=== PATIENT | male | born 1955 | race Caucasian/White ===

== ENCOUNTER 2021-09-04 10:01 | Outpatient (CLI) | payer MEDICARE ==
[2021-09-04 11:32] LABS: Anion Gap 16 mmol/L (10-20); BUN (Urea Nitrogen) 14 mg/dL (8.4-25.7); Calc. Creatinine Clearance 0 mL/min (70-130); Calcium 9.3 mg/dL (7.8-10.44); Carbon Dioxide 28 mmol/L (23-31); Chloride 99 mmol/L (98-107); Estimated GFR 97; Glucose 155 mg/dL (80-115); Potassium 3.9 mmol/L (3.5-5.1); Sodium 139 mmol/L (136-145)
[2021-09-04 11:33] LABS: Hemoglobin 14.2 g/dL (13.5-17.5); Mean Corpuscular HGB CONC 32.8 g/dL (32.0-36.0); Mean Corpuscular Hemoglobin 29.5 pg (27.0-33.0); Mean Corpuscular Volume 89.8 fl (81.2-95.1); Mean Platelet Volume 8.9 fl (7.4-10.4); Platelet Count 314 10x3/uL (150-450); RBC Distribution Width 13.2 % (11.5-14.5); Red Blood Cell (RBC) Count 4.82 10x6/uL (4.32-5.72); White Blood Cell (WBC) Count 9.4 10x3/uL (3.5-10.5)
[2021-09-04 11:38] LABS: PTT 25.3 sec (22.0-33.0); Prothrombin Time 11.3 sec (9.5-12.1)
== END 2021-09-04 10:02 | disposition home or self-care (01) ==
LOC: LABBT 10:01
PROVIDERS: ATTEND Urology
DX: Z01.818 Encounter for other preprocedural examination (principal); N21.0 Calculus in bladder
CPT/HCPCS: 80048; 85027; 85610; 85730; 87811; 93005; 93010

== ENCOUNTER 2021-10-09 10:55 | Outpatient (CLI) | payer MEDICARE ==
[2021-10-09 12:38] LABS: Hemoglobin 13.5 g/dL (13.5-17.5); Mean Corpuscular HGB CONC 32.5 g/dL (32.0-36.0); Mean Corpuscular Hemoglobin 29.4 pg (27.0-33.0); Mean Corpuscular Volume 90.6 fl (81.2-95.1); Mean Platelet Volume 9.2 fl (7.4-10.4); Platelet Count 304 10x3/uL (150-450); RBC Distribution Width 13.5 % (11.5-14.5); Red Blood Cell (RBC) Count 4.59 10x6/uL (4.32-5.72); White Blood Cell (WBC) Count 8.6 10x3/uL (3.5-10.5)
[2021-10-09 12:58] LABS: PTT 25.2 sec (22.0-33.0); Prothrombin Time 10.9 sec (9.5-12.1)
[2021-10-09 13:05] LABS: Anion Gap 13 mmol/L (10-20); BUN (Urea Nitrogen) 15 mg/dL (8.4-25.7); Calc. Creatinine Clearance 0 mL/min (70-130); Calcium 9.1 mg/dL (7.8-10.44); Carbon Dioxide 30 mmol/L (23-31); Chloride 103 mmol/L (98-107); Estimated GFR 98; Glucose 121 mg/dL (80-115); Potassium 4.3 mmol/L (3.5-5.1); Sodium 142 mmol/L (136-145)
== END 2021-10-09 10:56 | disposition home or self-care (01) ==
LOC: LABBT 10:55
PROVIDERS: ATTEND Urology
DX: Z01.812 Encounter for preprocedural laboratory examination (principal); N40.1 Benign prostatic hyperplasia with lower urinary tract symptoms; R33.9 Retention of urine, unspecified; N13.8 Other obstructive and reflux uropathy; N21.0 Calculus in bladder; Z20.822 Contact with and (suspected) exposure to COVID-19
CPT/HCPCS: 80048; 85027; 85610; 85730; 87077; 87086; 87186; 87811

== ENCOUNTER 2021-10-12 06:32 | Day surgery (SDC) | payer MEDICARE ==
[2021-10-10 13:03] VITALS: BMI 31.6
[2021-10-12] MEDS ORDERED: cefTRIAXone\\ROCEPHIN 1 GM VIAL ONE (07:37)
[2021-10-12] MEDS ORDERED: CEFAZOLIN 1 GM VIAL ONE (07:38)
[2021-10-12] MEDS ORDERED: Sodium Chloride 0.9% 200 ML ONE (07:38)
[2021-10-12] MEDS ORDERED: B & O ONE (09:25)
[2021-10-12] MEDS ORDERED: Fentanyl 100 MCG/2 ML VIAL ONE ×2 (09:45→11:38)
[2021-10-12] MEDS ORDERED: Phenylephrine 10 MG/ML VIAL ONE (09:49)
[2021-10-12] MEDS ORDERED: ePHEDrine 50 MG/ML VIAL ONE (09:49)
[2021-10-12] MEDS ORDERED: PROPOFOL 200 MG/20 ML VIAL ONE (09:49)
== END 2021-10-12 13:15 | disposition home or self-care (01) ==
LOC: SDC 06:32
PROVIDERS: ATTEND Urology
PROC: 0T7D8DZ Dilation of Urethra with Intraluminal Device, Via Natural or Artificial Opening Endoscopic (ICD-10-PCS; principal; 2021-10-12)
PROC: 0TCB8ZZ Extirpation of Matter from Bladder, Via Natural or Artificial Opening Endoscopic (ICD-10-PCS; 2021-10-12)
DX: N40.1 Benign prostatic hyperplasia with lower urinary tract symptoms (principal); N21.0 Calculus in bladder; N13.8 Other obstructive and reflux uropathy; R33.8 Other retention of urine; E78.5 Hyperlipidemia, unspecified; I12.9 Hypertensive chronic kidney disease with stage 1 through stage 4 chronic kidney disease, or unspecified chronic kidney disease; E11.22 Type 2 diabetes mellitus with diabetic chronic kidney disease; N18.9 Chronic kidney disease, unspecified; Z86.73 Personal history of transient ischemic attack (TIA), and cerebral infarction without residual deficits; Z79.02 Long term (current) use of antithrombotics/antiplatelets; Z79.82 Long term (current) use of aspirin; Z79.899 Other long term (current) drug therapy
CPT/HCPCS: 52318; 82365; C9740; L8699; 88300; J0690; J0696; J2370; J2704; J3010; J3490

== ENCOUNTER 2021-11-15 22:30 | Inpatient (IN) | payer MEDICARE ==
[2021-11-16] MEDS ORDERED: Ondansetron ODT 4 MG TAB SL PRN (01:15)
[2021-11-16] MEDS ORDERED: Acetaminophen 325 MG TAB PO PRN (01:15)
[2021-11-16] MEDS ORDERED: Ondansetron PF 4 MG/2 ML Vial IVP PRN (01:15)
[2021-11-16] MEDS ORDERED: Acetaminophen 650 MG Suppository PR PRN (01:57)
[2021-11-16] MEDS ORDERED: Dextrose 5% in Water 1,000 ML IV PRN (03:56)
[2021-11-16] MEDS ORDERED: HumaLOG 300 UNITS/3 ML VIAL SC PRN ×2 (03:56)
[2021-11-16] MEDS ORDERED: Dextrose 50% Abboject 50 ML SYRINGE SLOW IVP PRN (03:56)
[2021-11-16 04:21] LABS: SARS-CoV-2 NAA Rapid Test Not Detected (NotDetected)
[2021-11-16 04:48] VITALS: BMI 30.4
[2021-11-16 05:36] LABS: #Eosinphils 0.4 thou/uL (0.0-0.7); #Monocytes 0.7 thou/uL (0.11-0.59); %Basophils 0.5 % (0.0-1.0); %Eosinophils 3.7 % (0.0-10.0); %Lymphocytes 19.7 % (21.0-51.0); %Monocytes 7.2 % (0.0-10.0); %Neutrophils 68.9 % (42.0-75.0); Hemoglobin 13.1 g/dL (14.0-18.0); Mean Corpuscular HGB CONC 33.2 g/dL (32.0-36.0); Mean Corpuscular Hemoglobin 30.9 pg (27.0-31.0); Mean Corpuscular Volume 93.2 fL (78.0-98.0); Mean Platelet Volume 6.8 fL (7.4-10.4); Platelet Count 243 thou/uL (130-400); RBC Distribution Width 12.6 % (11.5-14.5); Red Blood Cell (RBC) Count 4.25 mill/uL (4.70-6.10); White Blood Cell (WBC) Count 10.2 thou/uL (4.8-10.8)
[2021-11-16 06:02] LABS: Anion Gap 13 mmol/L (10-20); BUN (Urea Nitrogen) 12 mg/dL (8.4-25.7); Calc. Creatinine Clearance 132 mL/min (70-130); Calcium 8.6 mg/dL (7.8-10.44); Carbon Dioxide 26 mmol/L (23-31); Chloride 104 mmol/L (98-107); Estimated GFR 98; Glucose 121 mg/dL (80-115); Potassium 4.5 mmol/L (3.5-5.1); Sodium 138 mmol/L (136-145)
[2021-11-16] MEDS ORDERED: Polyethylene Glycol 3350 17 GM Packet PO PRN (12:53)
[2021-11-16] MEDS: traMADol HCl 50 MG TAB PO PRN ×2 (16:21→23:28)
[2021-11-16] MEDS: Carvedilol 25 MG TAB PO SCH (20:24)
[2021-11-16] MEDS: Tamsulosin HCl 0.4 MG CAP PO SCH (20:24)
[2021-11-16] MEDS: Famotidine 20 MG TAB PO SCH (20:24)
[2021-11-16] MEDS: Oxybutynin 5 MG TAB PO SCH (20:24)
[2021-11-16] MEDS ORDERED: Non-Formulary Item 1 EACH (Famotidine [Famotidine] 10 MG Tablet) PO SCH (21:00)
[2021-11-17] MEDS: traMADol HCl 50 MG TAB PO PRN (06:24)
[2021-11-17] MEDS: Amlodipine 5 MG TAB PO SCH (09:20)
[2021-11-17] MEDS: Tamsulosin HCl 0.4 MG CAP PO SCH ×2 (09:20→19:58)
[2021-11-17] MEDS: Calcium Carbonate 500 MG ChewTAB PO SCH (09:20)
[2021-11-17] MEDS: Allopurinol 300 MG TAB PO SCH (09:20)
[2021-11-17] MEDS: Atorvastatin Calcium 40 MG TAB PO SCH (09:20)
[2021-11-17] MEDS: Famotidine 20 MG TAB PO SCH ×2 (09:20→19:58)
[2021-11-17] MEDS: Potassium Chloride 20 MEQ TAB PO SCH (09:20)
[2021-11-17] MEDS: Carvedilol 25 MG TAB PO SCH ×2 (09:20→19:58)
[2021-11-17] MEDS: Oxybutynin 5 MG TAB PO SCH ×3 (09:21→19:58)
[2021-11-17] MEDS: Loratadine 10 MG TAB PO SCH (09:21)
[2021-11-17 11:08] LABS: #Eosinphils 0.4 thou/uL (0.0-0.7); #Lymphocytes 1.6 thou/uL (1.20-3.40); #Monocytes 0.5 thou/uL (0.11-0.59); #Neutrophils 6.6 thou/uL (1.40-6.50); %Basophils 0.4 % (0.0-1.0); %Eosinophils 4.8 % (0.0-10.0); %Lymphocytes 17.6 % (21.0-51.0); %Monocytes 5.6 % (0.0-10.0); %Neutrophils 71.6 % (42.0-75.0); Hemoglobin 13.5 g/dL (14.0-18.0); Mean Corpuscular HGB CONC 32.8 g/dL (32.0-36.0); Mean Corpuscular Hemoglobin 30.6 pg (27.0-31.0); Mean Corpuscular Volume 93.4 fL (78.0-98.0); Mean Platelet Volume 6.7 fL (7.4-10.4); Platelet Count 248 thou/uL (130-400); RBC Distribution Width 12.6 % (11.5-14.5); Red Blood Cell (RBC) Count 4.41 mill/uL (4.70-6.10); White Blood Cell (WBC) Count 9.3 thou/uL (4.8-10.8)
[2021-11-17 11:16] LABS: Anion Gap 12 mmol/L (10-20); BUN (Urea Nitrogen) 16 mg/dL (8.4-25.7); Calc. Creatinine Clearance 136 mL/min (70-130); Calcium 8.8 mg/dL (7.8-10.44); Carbon Dioxide 29 mmol/L (23-31); Chloride 100 mmol/L (98-107); Estimated GFR 98; Glucose 137 mg/dL (80-115); Potassium 4.4 mmol/L (3.5-5.1); Sodium 137 mmol/L (136-145)
[2021-11-18 06:13] LABS: #Eosinphils 0.5 thou/uL (0.0-0.7); #Lymphocytes 1.4 thou/uL (1.20-3.40); #Monocytes 0.6 thou/uL (0.11-0.59); #Neutrophils 5.5 thou/uL (1.40-6.50); %Basophils 0.6 % (0.0-1.0); %Eosinophils 6.3 % (0.0-10.0); %Monocytes 7.6 % (0.0-10.0); %Neutrophils 68.5 % (42.0-75.0); Hemoglobin 13.1 g/dL (14.0-18.0); Mean Corpuscular Hemoglobin 30.5 pg (27.0-31.0); Mean Corpuscular Volume 92.4 fL (78.0-98.0); Mean Platelet Volume 6.8 fL (7.4-10.4); Platelet Count 238 thou/uL (130-400); RBC Distribution Width 12.5 % (11.5-14.5); Red Blood Cell (RBC) Count 4.28 mill/uL (4.70-6.10)
[2021-11-18 06:32] LABS: Anion Gap 13 mmol/L (10-20); BUN (Urea Nitrogen) 16 mg/dL (8.4-25.7); Calc. Creatinine Clearance 138 mL/min (70-130); Calcium 8.9 mg/dL (7.8-10.44); Carbon Dioxide 29 mmol/L (23-31); Chloride 99 mmol/L (98-107); Estimated GFR 99; Glucose 115 mg/dL (80-115); Potassium 3.9 mmol/L (3.5-5.1); Sodium 137 mmol/L (136-145)
[2021-11-18] MEDS: Amlodipine 5 MG TAB PO SCH (10:39)
[2021-11-18] MEDS: Calcium Carbonate 500 MG ChewTAB PO SCH (10:39)
[2021-11-18] MEDS: Famotidine 20 MG TAB PO SCH ×2 (10:39→20:35)
[2021-11-18] MEDS: Loratadine 10 MG TAB PO SCH (10:40)
[2021-11-18] MEDS: Oxybutynin 5 MG TAB PO SCH ×3 (10:40→20:34)
[2021-11-18] MEDS: Carvedilol 25 MG TAB PO SCH ×2 (10:40→20:34)
[2021-11-18] MEDS: Potassium Chloride 20 MEQ TAB PO SCH (10:40)
[2021-11-18] MEDS: Tamsulosin HCl 0.4 MG CAP PO SCH ×2 (10:40→20:35)
[2021-11-18] MEDS: Atorvastatin Calcium 40 MG TAB PO SCH (10:40)
[2021-11-18] MEDS: Allopurinol 300 MG TAB PO SCH (10:41)
[2021-11-18] MEDS: traMADol HCl 50 MG TAB PO PRN (13:03)
[2021-11-19 05:59] LABS: #Eosinphils 0.4 thou/uL (0.0-0.7); #Lymphocytes 1.4 thou/uL (1.20-3.40); #Monocytes 0.5 thou/uL (0.11-0.59); #Neutrophils 5.9 thou/uL (1.40-6.50); %Basophils 0.5 % (0.0-1.0); %Lymphocytes 17.2 % (21.0-51.0); %Neutrophils 71.3 % (42.0-75.0); Hemoglobin 13.4 g/dL (14.0-18.0); Mean Corpuscular HGB CONC 32.2 g/dL (32.0-36.0); Mean Corpuscular Hemoglobin 29.6 pg (27.0-31.0); Mean Corpuscular Volume 91.8 fL (78.0-98.0); Mean Platelet Volume 6.6 fL (7.4-10.4); Platelet Count 261 thou/uL (130-400); RBC Distribution Width 12.4 % (11.5-14.5); Red Blood Cell (RBC) Count 4.54 mill/uL (4.70-6.10); White Blood Cell (WBC) Count 8.3 thou/uL (4.8-10.8)
[2021-11-19 06:16] LABS: Anion Gap 14 mmol/L (10-20); BUN (Urea Nitrogen) 12 mg/dL (8.4-25.7); Calc. Creatinine Clearance 136 mL/min (70-130); Calcium 9.1 mg/dL (7.8-10.44); Carbon Dioxide 28 mmol/L (23-31); Chloride 99 mmol/L (98-107); Estimated GFR 98; Glucose 124 mg/dL (80-115); Potassium 3.8 mmol/L (3.5-5.1); Sodium 137 mmol/L (136-145)
[2021-11-19] MEDS: Allopurinol 300 MG TAB PO SCH (08:58)
[2021-11-19] MEDS: Atorvastatin Calcium 40 MG TAB PO SCH (08:58)
[2021-11-19] MEDS: Loratadine 10 MG TAB PO SCH (08:58)
[2021-11-19] MEDS: Amlodipine 5 MG TAB PO SCH (08:58)
[2021-11-19] MEDS: Carvedilol 25 MG TAB PO SCH ×2 (08:58→20:41)
[2021-11-19] MEDS: Calcium Carbonate 500 MG ChewTAB PO SCH (08:58)
[2021-11-19] MEDS: Potassium Chloride 20 MEQ TAB PO SCH (08:59)
[2021-11-19] MEDS: Tamsulosin HCl 0.4 MG CAP PO SCH ×2 (08:59→20:41)
[2021-11-19] MEDS: Famotidine 20 MG TAB PO SCH ×2 (08:59→20:41)
[2021-11-19] MEDS: Oxybutynin 5 MG TAB PO SCH ×3 (08:59→20:42)
[2021-11-19] MEDS: Melatonin 3 MG TAB PO PRN (21:43)
[2021-11-20 06:22] LABS: #Eosinphils 0.3 thou/uL (0.0-0.7); #Lymphocytes 1.3 thou/uL (1.20-3.40); #Monocytes 0.7 thou/uL (0.11-0.59); #Neutrophils 6.9 thou/uL (1.40-6.50); %Basophils 0.5 % (0.0-1.0); %Eosinophils 3.2 % (0.0-10.0); %Lymphocytes 13.7 % (21.0-51.0); %Monocytes 7.5 % (0.0-10.0); %Neutrophils 75.1 % (42.0-75.0); Hemoglobin 13.4 g/dL (14.0-18.0); Mean Corpuscular HGB CONC 31.9 g/dL (32.0-36.0); Mean Corpuscular Hemoglobin 29.1 pg (27.0-31.0); Mean Corpuscular Volume 91.4 fL (78.0-98.0); Mean Platelet Volume 6.7 fL (7.4-10.4); Platelet Count 281 thou/uL (130-400); RBC Distribution Width 12.5 % (11.5-14.5); White Blood Cell (WBC) Count 9.3 thou/uL (4.8-10.8)
[2021-11-20 06:40] LABS: Anion Gap 14 mmol/L (10-20); BUN (Urea Nitrogen) 12 mg/dL (8.4-25.7); Calc. Creatinine Clearance 138 mL/min (70-130); Calcium 9.2 mg/dL (7.8-10.44); Carbon Dioxide 25 mmol/L (23-31); Chloride 99 mmol/L (98-107); Estimated GFR 99; Glucose 132 mg/dL (80-115); Potassium 3.8 mmol/L (3.5-5.1); Sodium 134 mmol/L (136-145)
[2021-11-20 08:01] LABS: Prothrombin Time 13.5 sec (12.0-14.7)
[2021-11-20 08:02] LABS: PTT 28.6 sec (22.9-36.1)
[2021-11-20] MEDS: Oxybutynin 5 MG TAB PO SCH ×3 (08:37→21:07)
[2021-11-20] MEDS: Carvedilol 25 MG TAB PO SCH ×2 (08:37→21:07)
[2021-11-20] MEDS: Potassium Chloride 20 MEQ TAB PO SCH (08:37)
[2021-11-20] MEDS: Atorvastatin Calcium 40 MG TAB PO SCH (08:37)
[2021-11-20] MEDS: Loratadine 10 MG TAB PO SCH (08:37)
[2021-11-20] MEDS: Calcium Carbonate 500 MG ChewTAB PO SCH (08:37)
[2021-11-20] MEDS: Famotidine 20 MG TAB PO SCH ×2 (08:37→21:07)
[2021-11-20] MEDS: Tamsulosin HCl 0.4 MG CAP PO SCH ×2 (08:37→21:07)
[2021-11-20] MEDS: Amlodipine 5 MG TAB PO SCH (08:38)
[2021-11-20] MEDS: Allopurinol 300 MG TAB PO SCH (08:38)
[2021-11-20] MEDS ORDERED: Midazolam HCl 2 mg/2 ml Vial ONE (11:41)
[2021-11-20] MEDS ORDERED: Fentanyl 100 MCG/2 ML VIAL ONE (11:41)
[2021-11-20] MEDS ORDERED: Lidocaine 2% PF 5 ML VIAL ONE (11:42)
[2021-11-20] MEDS ORDERED: Sodium Bicarbonate 2.5 MEQ/5 ML VIAL ONE (11:42)
[2021-11-20] MEDS ORDERED: cefTRIAXone\\ROCEPHIN 1 GM in Sodium Chloride 0.9% 100 ML IVPB SCH (13:00)
[2021-11-20] MEDS: Melatonin 3 MG TAB PO PRN (21:08)
[2021-11-21 07:20] VITALS: TEMP 98.6
[2021-11-21] MEDS: Amlodipine 5 MG TAB PO SCH (09:23)
[2021-11-21] MEDS: Loratadine 10 MG TAB PO SCH (09:23)
[2021-11-21] MEDS: Allopurinol 300 MG TAB PO SCH (09:23)
[2021-11-21] MEDS: Calcium Carbonate 500 MG ChewTAB PO SCH (09:23)
[2021-11-21] MEDS: Atorvastatin Calcium 40 MG TAB PO SCH (09:23)
[2021-11-21] MEDS: Potassium Chloride 20 MEQ TAB PO SCH (09:23)
[2021-11-21] MEDS: Tamsulosin HCl 0.4 MG CAP PO SCH (09:23)
[2021-11-21] MEDS: Oxybutynin 5 MG TAB PO SCH (09:23)
[2021-11-21] MEDS: Famotidine 20 MG TAB PO SCH (09:23)
[2021-11-21] MEDS: Carvedilol 25 MG TAB PO SCH (09:23)
[2021-11-21 11:58] VITALS: BP 126/78
== END 2021-11-21 13:45 | disposition home or self-care (01) | DRG 698 ==
LOC: SURG B 22:30 → OBSVTOIN 11-16 16:44
PROVIDERS: ADMIT Internal Medicine; ATTEND Internal Medicine
PROC: 0T9B70Z Drainage of Bladder with Drainage Device, Via Natural or Artificial Opening (ICD-10-PCS; principal; 2021-11-20)
DX: T83.83XA Hemorrhage due to genitourinary prosthetic devices, implants and grafts, initial encounter (principal); G93.41 Metabolic encephalopathy; I69.354 Hemiplegia and hemiparesis following cerebral infarction affecting left non-dominant side; E87.1 Hypo-osmolality and hyponatremia; N13.8 Other obstructive and reflux uropathy; T83.098A Other mechanical complication of other urinary catheter, initial encounter; R31.0 Gross hematuria; N40.1 Benign prostatic hyperplasia with lower urinary tract symptoms; Z20.822 Contact with and (suspected) exposure to COVID-19; M10.9 Gout, unspecified; I10 Essential (primary) hypertension; E78.5 Hyperlipidemia, unspecified; I25.10 Atherosclerotic heart disease of native coronary artery without angina pectoris; G20 Parkinson's disease; Z79.82 Long term (current) use of aspirin; Z79.899 Other long term (current) drug therapy; Z98.890 Other specified postprocedural states; Y84.6 Urinary catheterization as the cause of abnormal reaction of the patient, or of later complication, without mention of misadventure at the time of the procedure; T83.091A Other mechanical complication of indwelling urethral catheter, initial encounter; R31.9 Hematuria, unspecified
CPT/HCPCS: 36415; 36416; 51102; 51702; 51798; 70450; 71045; 77002; 80048; 80053; 81003; 81015; 83605; 85025; 85610; 85730; 87040; 87077; 87086; 87186; 96365; 96375; C2627; G0378; J0696; J1815; J2001; J2250; J2270; J2405; J3010; U0002

== ENCOUNTER 2022-12-15 20:31 | Inpatient (IN) | payer MEDICARE ==
[2022-12-15] MEDS ORDERED: Ventilator Sedation Protocol 1 EACH FS ONE (22:45)
[2022-12-15] MEDS ORDERED: Ipratropium/Albuterol 3 ML NEB NEB PRN (22:51)
[2022-12-15] MEDS ORDERED: Glucagon 1 MG/ML KIT IM PRN (22:54)
[2022-12-15] MEDS ORDERED: HumaLOG 300 UNITS/3 ML VIAL SC PRN ×2 (22:54)
[2022-12-15] MEDS ORDERED: Dextrose 5% in Water 1,000 ML IV PRN (22:54)
[2022-12-15] MEDS ORDERED: Dextrose 50% Abboject 50 ML SYRINGE SLOW IVP PRN (22:54)
[2022-12-15] MEDS ORDERED: Electrolyte Replacement Protocol 1 EACH FS PRN (22:55)
[2022-12-15] MEDS ORDERED: Ondansetron ODT 4 MG TAB PO PRN (22:56)
[2022-12-15] MEDS ORDERED: Acetaminophen 650 MG Suppository PR PRN (22:56)
[2022-12-15] MEDS ORDERED: Acetaminophen 325 MG TAB PO PRN (22:56)
[2022-12-15] MEDS ORDERED: Ondansetron PF 4 MG/2 ML Vial IVP PRN (22:56)
[2022-12-15] MEDS ORDERED: Fentanyl CADD 100 ML IV SCH (23:00)
[2022-12-15] MEDS ORDERED: Morphine 2 MG/ML VIAL SLOW IVP PRN (23:00)
[2022-12-15] MEDS ORDERED: Polyethylene Glycol 3350 17 GM Packet PO SCH (23:00)
[2022-12-15] MEDS ORDERED: Mineral Oil ENEMA PR SCH (23:00)
[2022-12-15] MEDS ORDERED: Propofol BOLUS 1,000 MG/100 ML VIAL IV PRN (23:00)
[2022-12-15] MEDS ORDERED: Fentanyl BOLUS 250 ML IVPB PRN (23:00)
[2022-12-15] MEDS ORDERED: DISCONTINUE PREVIOUS NARCOTIC PAIN MEDICATIONS AND BENZODIAZEPINES FS SCH (23:00)
[2022-12-15 23:09] LABS: Actual Bicarbonate (HCO3a) 34.4 mEq/L (22-28); Base Excess (BEa) 9.7 mEq/L (-2.0 to +3.0); CO2 Tension 46.6 mmHg (35.0-45.0); Calcium, Ionized (arterial) 1.06 mmol/L (1.12-1.30); Carboxyhemoglobin (COHb) 0.9 gm% (0.0-3.0); Hematocrit-ABG 39 % (42.0-52.0); Hemoglobin (Hb) 13.1 g/dL (14.0-18.0); pH, Arterial 7.486 (7.35-7.45)
[2022-12-15 23:09] LABS: #Monocytes 1.1 thou/uL (0.11-0.59); %Basophils 0.4 % (0.0-1.0); %Eosinophils 0.4 % (0.0-10.0); %Lymphocytes 15.8 % (21.0-51.0); %Monocytes 10.1 % (0.0-10.0); %Neutrophils 72.8 % (42.0-75.0); Hematocrit 38.7 % (42.0-52.0); Hemoglobin 12.6 g/dL (14.0-18.0); Mean Corpuscular HGB CONC 32.6 g/dL (32.0-36.0); Mean Corpuscular Hemoglobin 28.3 pg (27.0-31.0); Mean Corpuscular Volume 86.8 fl (78.0-98.0); Mean Platelet Volume 8.5 fL (7.4-10.4); Platelet Count 243 10x3/uL (130-400); RBC Distribution Width 13.6 % (11.5-14.5); Red Blood Cell (RBC) Count 4.46 mill/uL (4.70-6.10)
[2022-12-15 23:11] LABS: O2 Tension (PaO2), arterial 58.9 mmHg (> 80.0)
[2022-12-15 23:12] LABS: Puncture Site RFA
[2022-12-15 23:29] LABS: Lactic Acid 2.2 mmol/L (0.5-2.2)
[2022-12-15] MEDS: Ipratropium/Albuterol 3 ML NEB NEB SCH (23:29)
[2022-12-15] MEDS ORDERED: Piperacillin/Tazobactam 3.375 GM in Sodium Chloride 0.9% 100 ML IVPB SCH (23:30)
[2022-12-15 23:33] LABS: ALT (SGPT) 15 U/L (8-55); AST (SGOT) 14 U/L (5-34); Albumin 4.3 g/dL (3.4-4.8); Alkaline Phosphatase 173 U/L (40-110); Anion Gap 15 mmol/L (10-20); BUN (Urea Nitrogen) 18 mg/dL (8.4-25.7); Bilirubin, Total 0.5 mg/dL (0.2-1.2); Calc. Creatinine Clearance 0 mL/min (70-130); Calcium 8.9 mg/dL (7.8-10.44); Carbon Dioxide 33 mmol/L (23-31); Chloride 82 mmol/L (98-107); Estimated GFR 95; Globulin 2.6 g/dL (2.4-3.5); Glucose 76 mg/dL (80-115); Protein, Total 6.9 g/dL (5.8-8.1); Sodium 126 mmol/L (136-145)
[2022-12-15] MEDS: Propofol 1,000 MG/100 ML VIAL IV PRN (23:58)
[2022-12-15] MEDS: Sodium Chloride 0.9% 1,000 ML IV SCH (23:58)
[2022-12-15] MEDS ORDERED: Vancomycin (BATCH) 2 GM in Premix 1 BAG IVPB SCH (23:59)
[2022-12-16 00:35] LABS: Bacteria/HPF 4+ HPF (None Seen); Bilirubin Negative (Negative); Blood, Urine Trace (Negative); CAUTI Indications for Culture Alt mental st,lethar; Clarity Clear (Clear); Glucose, Urine (Dipstick) Normal (Negative); Ketone, Urine Negative (Negative); Leukocyte 500 Leu/uL (Negative); Nitrite Negative (Negative); Protein, Urine (Dipstick) 70 mg/dL (Neg-Trace); RBC/HPF 21-50 HPF (0-3); Squamous Epithelial None Seen HPF (0-3); Urobilinogen Normal mg/dL (Less than 2); WBC/HPF Greater than 50 HPF (0-3); pH, Urine 8.5 (5.0-9.0)
[2022-12-16 00:45] LABS: Specific Gravity, Urine 1.046 (1.002-1.036)
[2022-12-16 02:47] LABS: Strep pneumo Urine Ag NEGATIVE (NEGATIVE)
[2022-12-16 02:48] LABS: Legionella Urinary Ag Negative (Negative)
[2022-12-16] MEDS: Piperacillin/Tazobactam 3.375 GM in Sodium Chloride 0.9% 100 ML IVPB SCH ×3 (03:10→20:18)
[2022-12-16] MEDS: Lorazepam 2 MG/ML VIAL SLOW IVP PRN ×2 (03:10→20:17)
[2022-12-16] MEDS: Propofol 1,000 MG/100 ML VIAL IV PRN ×4 (03:10→20:17)
[2022-12-16 04:14] LABS: #Eosinphils 0.1 thou/uL (0.0-0.7); #Monocytes 0.7 thou/uL (0.11-0.59); #Neutrophils 7.2 thou/uL (1.40-6.50); %Basophils 0.4 % (0.0-1.0); %Eosinophils 1.5 % (0.0-10.0); %Lymphocytes 14.1 % (21.0-51.0); %Monocytes 7.7 % (0.0-10.0); %Neutrophils 75.9 % (42.0-75.0); Hematocrit 35.6 % (42.0-52.0); Mean Corpuscular HGB CONC 33.7 g/dL (32.0-36.0); Mean Corpuscular Hemoglobin 28.4 pg (27.0-31.0); Mean Corpuscular Volume 84.4 fl (78.0-98.0); Mean Platelet Volume 8.3 fL (7.4-10.4); Platelet Count 198 10x3/uL (130-400); RBC Distribution Width 13.8 % (11.5-14.5); Red Blood Cell (RBC) Count 4.22 mill/uL (4.70-6.10); White Blood Cell (WBC) Count 9.5 10x3/uL (4.8-10.8)
[2022-12-16 04:38] LABS: Anion Gap 12 mmol/L (10-20); BUN (Urea Nitrogen) 16 mg/dL (8.4-25.7); Calc. Creatinine Clearance 156 mL/min (70-130); Calcium 8.6 mg/dL (7.8-10.44); Carbon Dioxide 34 mmol/L (23-31); Chloride 87 mmol/L (98-107); Estimated GFR 99; Potassium 2.9 mmol/L (3.5-5.1); Sodium 130 mmol/L (136-145)
[2022-12-16 04:44] LABS: Glucose 48 mg/dL (80-115)
[2022-12-16] MEDS: Ipratropium/Albuterol 3 ML NEB NEB SCH ×4 (07:11→23:37)
[2022-12-16] MEDS ORDERED: VANC IVPB PRN (07:28)
[2022-12-16] MEDS ORDERED: Dexmedetomidine 400 MCG, Admixture Fee 1 EACH in Sodium Chloride 0.9% 96 ML IVPB SCH (08:00)
[2022-12-16] MEDS: Potassium Chloride 20 MEQ in Premix 1 BAG IVPB SCH ×4 (08:12→14:22)
[2022-12-16] MEDS: levETIRAcetam 500 MG/5 ML VIAL SLOW IVP SCH ×2 (08:12→20:19)
[2022-12-16] MEDS: Polyethylene Glycol 3350 17 GM Packet PO SCH (08:13)
[2022-12-16] MEDS: Senokot S 8.6-50 MG TAB PO SCH ×2 (08:13→20:19)
[2022-12-16] MEDS ORDERED: Vancomycin 1 GM in Sodium Chloride 0.9% 250 ML 250 ML IVPB SCH (09:00)
[2022-12-16] MEDS ORDERED: Pantoprazole 40 MG VIAL IVP SCH (09:00)
[2022-12-16 09:18] LABS: Actual Bicarbonate (HCO3a) 31.9 mEq/L (22-28); CO2 Tension 46.4 mmHg (35.0-45.0); Calcium, Ionized (arterial) 1.08 mmol/L (1.12-1.30); Carboxyhemoglobin (COHb) 0.7 gm% (0.0-3.0); Hematocrit-ABG 38 % (42.0-52.0); Hemoglobin (Hb) 12.9 g/dL (14.0-18.0); Potassium - ABG Lab 3.44 mmol/L (3.70-5.30); Puncture Site RRA; pH, Arterial 7.455 (7.35-7.45)
[2022-12-16] MEDS ORDERED: Iopamidol-370 76% 500 ML MDV (1 ML CHARGE) ONE (09:53)
[2022-12-16] MEDS ORDERED: Dexamethasone 10 MG/ML VIAL SLOW IVP SCH (11:00)
[2022-12-16] MEDS ORDERED: Cyproheptadine 4 MG TAB PO SCH (12:00)
[2022-12-16] MEDS ORDERED: Famotidine/PF 20 mg/2ml Vial SLOW IVP SCH (13:00)
[2022-12-16] MEDS: Cyproheptadine 4 MG TAB PO SCH ×5 (14:22→22:25)
[2022-12-16] MEDS: hydrALAZINE 20 MG/ML VIAL SLOW IVP PRN ×2 (15:08→20:39)
[2022-12-16] MEDS ORDERED: diphenhydrAMINE 50 MG/ML VIAL IVP PRN (16:58)
[2022-12-16 17:53] LABS: Anion Gap 13 mmol/L (10-20); BUN (Urea Nitrogen) 13 mg/dL (8.4-25.7); Calc. Creatinine Clearance 135 mL/min (70-130); Calcium 9.1 mg/dL (7.8-10.44); Carbon Dioxide 33 mmol/L (23-31); Chloride 91 mmol/L (98-107); Estimated GFR 95; Glucose 153 mg/dL (80-115); Potassium 4.2 mmol/L (3.5-5.1); Sodium 133 mmol/L (136-145)
[2022-12-16] MEDS: Famotidine/PF 20 mg/2ml Vial SLOW IVP SCH (20:19)
[2022-12-16] MEDS: Sodium Chloride 0.9% 1,000 ML IV SCH (20:22)
[2022-12-17] MEDS: Cyproheptadine 4 MG TAB PO SCH ×5 (00:46→09:23)
[2022-12-17 02:25] LABS: #Monocytes 0.3 thou/uL (0.11-0.59); #Neutrophils 9.9 thou/uL (1.40-6.50); %Basophils 0.1 % (0.0-1.0); %Lymphocytes 4.8 % (21.0-51.0); %Monocytes 2.8 % (0.0-10.0); %Neutrophils 91.8 % (42.0-75.0); Hematocrit 39.1 % (42.0-52.0); Hemoglobin 13.2 g/dL (14.0-18.0); Mean Corpuscular HGB CONC 33.8 g/dL (32.0-36.0); Mean Corpuscular Hemoglobin 28.1 pg (27.0-31.0); Mean Corpuscular Volume 83.4 fl (78.0-98.0); Mean Platelet Volume 8.5 fL (7.4-10.4); Platelet Count 236 10x3/uL (130-400); RBC Distribution Width 14.1 % (11.5-14.5); Red Blood Cell (RBC) Count 4.69 mill/uL (4.70-6.10); White Blood Cell (WBC) Count 10.7 10x3/uL (4.8-10.8)
[2022-12-17 02:54] LABS: Anion Gap 15 mmol/L (10-20); BUN (Urea Nitrogen) 16 mg/dL (8.4-25.7); Calc. Creatinine Clearance 133 mL/min (70-130); Calcium 8.9 mg/dL (7.8-10.44); Carbon Dioxide 29 mmol/L (23-31); Chloride 92 mmol/L (98-107); Estimated GFR 95; Glucose 174 mg/dL (80-115); Potassium 3.6 mmol/L (3.5-5.1); Sodium 132 mmol/L (136-145)
[2022-12-17] MEDS: Propofol 1,000 MG/100 ML VIAL IV PRN (04:53)
[2022-12-17] MEDS: Piperacillin/Tazobactam 3.375 GM in Sodium Chloride 0.9% 100 ML IVPB SCH ×3 (04:53→20:27)
[2022-12-17] MEDS: Ipratropium/Albuterol 3 ML NEB NEB SCH ×2 (06:06→12:32)
[2022-12-17 07:40] LABS: Actual Bicarbonate (HCO3a) 28.3 mEq/L (22-28); Base Excess (BEa) 4.1 mEq/L (-2.0 to +3.0); CO2 Tension 40.7 mmHg (35.0-45.0); Calcium, Ionized (arterial) 1.09 mmol/L (1.12-1.30); Carboxyhemoglobin (COHb) 0.6 gm% (0.0-3.0); Hematocrit-ABG 41 % (42.0-52.0); O2 Tension (PaO2), arterial 61.8 mmHg (> 80.0); Potassium - ABG Lab 3.68 mmol/L (3.70-5.30)
[2022-12-17 07:42] LABS: ALV-art Gradient 172.525 mmHg (0-20); Puncture Site RRA
[2022-12-17] MEDS: levETIRAcetam 500 MG/5 ML VIAL SLOW IVP SCH ×2 (09:21→20:27)
[2022-12-17] MEDS: Senokot S 8.6-50 MG TAB PO SCH ×2 (09:22→20:28)
[2022-12-17] MEDS: Famotidine/PF 20 mg/2ml Vial SLOW IVP SCH ×2 (09:22→20:27)
[2022-12-17] MEDS: Polyethylene Glycol 3350 17 GM Packet PO SCH (09:23)
[2022-12-17] MEDS ORDERED: Ipratropium/Albuterol 3 ML NEB NEB PRN (12:45)
[2022-12-17] MEDS ORDERED: DC Sedation Protocol FS ONE (13:05)
[2022-12-17] MEDS: Sodium Chloride 0.9% 1,000 ML IV SCH (16:38)
[2022-12-17] MEDS ORDERED: Sodium Chloride 0.9% 1,000 ML IV SCH (20:21)
[2022-12-17] MEDS ORDERED: Sodium Chloride 0.9% 500 ML IV SCH (20:30)
[2022-12-17 23:08] LABS: #Eosinphils 0.1 thou/uL (0.0-0.7); #Monocytes 0.9 thou/uL (0.11-0.59); #Neutrophils 8.2 thou/uL (1.40-6.50); %Basophils 0.4 % (0.0-1.0); %Eosinophils 0.9 % (0.0-10.0); %Lymphocytes 12.7 % (21.0-51.0); %Monocytes 8.2 % (0.0-10.0); %Neutrophils 77.5 % (42.0-75.0); Hematocrit 38.5 % (42.0-52.0); Hemoglobin 12.5 g/dL (14.0-18.0); Mean Corpuscular HGB CONC 32.5 g/dL (32.0-36.0); Mean Corpuscular Hemoglobin 28.3 pg (27.0-31.0); Mean Platelet Volume 8.7 fL (7.4-10.4); Platelet Count 242 10x3/uL (130-400); RBC Distribution Width 14.7 % (11.5-14.5); Red Blood Cell (RBC) Count 4.41 mill/uL (4.70-6.10); White Blood Cell (WBC) Count 10.6 10x3/uL (4.8-10.8)
[2022-12-17 23:57] LABS: Mean Corpuscular Volume 87.3 fl (78.0-98.0)
[2022-12-18] MEDS: Piperacillin/Tazobactam 3.375 GM in Sodium Chloride 0.9% 100 ML IVPB SCH ×3 (03:00→20:43)
[2022-12-18 03:59] LABS: #Eosinphils 0.2 thou/uL (0.0-0.7); #Monocytes 0.8 thou/uL (0.11-0.59); #Neutrophils 7.9 thou/uL (1.40-6.50); %Basophils 0.4 % (0.0-1.0); %Eosinophils 1.5 % (0.0-10.0); %Lymphocytes 13.2 % (21.0-51.0); %Monocytes 7.7 % (0.0-10.0); %Neutrophils 76.8 % (42.0-75.0); Hematocrit 37.2 % (42.0-52.0); Mean Corpuscular HGB CONC 32.3 g/dL (32.0-36.0); Mean Corpuscular Hemoglobin 27.8 pg (27.0-31.0); Mean Corpuscular Volume 86.3 fl (78.0-98.0); Mean Platelet Volume 8.9 fL (7.4-10.4); Platelet Count 241 10x3/uL (130-400); RBC Distribution Width 14.6 % (11.5-14.5); Red Blood Cell (RBC) Count 4.31 mill/uL (4.70-6.10); White Blood Cell (WBC) Count 10.2 10x3/uL (4.8-10.8)
[2022-12-18 04:20] LABS: Anion Gap 13 mmol/L (10-20); BUN (Urea Nitrogen) 18 mg/dL (8.4-25.7); CK (CPK) 3793 U/L (30-200); Calc. Creatinine Clearance 131 mL/min (70-130); Calcium 8.3 mg/dL (7.8-10.44); Carbon Dioxide 29 mmol/L (23-31); Chloride 100 mmol/L (98-107); Estimated GFR 95; Glucose 87 mg/dL (80-115); Potassium 3.3 mmol/L (3.5-5.1); Sodium 139 mmol/L (136-145)
[2022-12-18] MEDS: Sodium Chloride 0.9% 1,000 ML IV SCH ×2 (04:39→11:30)
[2022-12-18] MEDS ORDERED: Sodium Chloride 0.9% 500 ML IV SCH (04:45)
[2022-12-18] MEDS: Senokot S 8.6-50 MG TAB PO SCH ×3 (08:48→20:44)
[2022-12-18] MEDS: Polyethylene Glycol 3350 17 GM Packet PO SCH (08:58)
[2022-12-18] MEDS: Famotidine/PF 20 mg/2ml Vial SLOW IVP SCH (08:58)
[2022-12-18] MEDS: levETIRAcetam 500 MG/5 ML VIAL SLOW IVP SCH ×2 (08:58→20:43)
[2022-12-18] MEDS: Potassium Chloride 20 MEQ in Premix 1 BAG IVPB SCH ×2 (09:00→10:23)
[2022-12-18] MEDS ORDERED: Sodium Chloride 0.9% 1,000 ML IV SCH (14:30)
[2022-12-18] MEDS: Dextrose 5 % And 0.9 % NaCl 1,000 ML IV SCH (23:10)
[2022-12-19] MEDS: Piperacillin/Tazobactam 3.375 GM in Sodium Chloride 0.9% 100 ML IVPB SCH ×3 (03:40→20:56)
[2022-12-19 04:23] LABS: #Basophils 0.1 thou/uL (0.0-0.2); #Eosinphils 0.4 thou/uL (0.0-0.7); #Monocytes 0.7 thou/uL (0.11-0.59); #Neutrophils 6.6 thou/uL (1.40-6.50); %Basophils 0.7 % (0.0-1.0); %Lymphocytes 15.1 % (21.0-51.0); %Monocytes 7.3 % (0.0-10.0); %Neutrophils 72.6 % (42.0-75.0); Hematocrit 38.4 % (42.0-52.0); Mean Corpuscular HGB CONC 31.3 g/dL (32.0-36.0); Mean Corpuscular Hemoglobin 28.5 pg (27.0-31.0); Mean Corpuscular Volume 91.2 fl (78.0-98.0); Mean Platelet Volume 8.8 fL (7.4-10.4); Platelet Count 233 10x3/uL (130-400); RBC Distribution Width 14.9 % (11.5-14.5); Red Blood Cell (RBC) Count 4.21 mill/uL (4.70-6.10)
[2022-12-19 04:49] LABS: Anion Gap 13 mmol/L (10-20); BUN (Urea Nitrogen) 16 mg/dL (8.4-25.7); CK (CPK) 2254 U/L (30-200); Calc. Creatinine Clearance 142 mL/min (70-130); Calcium 8.6 mg/dL (7.8-10.44); Carbon Dioxide 29 mmol/L (23-31); Chloride 100 mmol/L (98-107); Estimated GFR 98; Glucose 86 mg/dL (80-115); Potassium 3.7 mmol/L (3.5-5.1); Sodium 138 mmol/L (136-145)
[2022-12-19] MEDS ORDERED: FLU VACC QS2023(65UP)/MF59C/PF 60 MCG/0.5 ML SYRINGE IM ONE (09:00)
[2022-12-19] MEDS: Dextrose 5 % And 0.9 % NaCl 1,000 ML IV SCH ×2 (10:37→20:56)
[2022-12-19] MEDS: levETIRAcetam 500 MG/5 ML VIAL SLOW IVP SCH ×2 (10:38→20:56)
[2022-12-19] MEDS: Senokot S 8.6-50 MG TAB PO SCH ×2 (12:13→20:57)
[2022-12-19] MEDS: Polyethylene Glycol 3350 17 GM Packet PO SCH (12:13)
[2022-12-20] MEDS: Dextrose 5 % And 0.9 % NaCl 1,000 ML IV SCH ×2 (04:18→15:20)
[2022-12-20] MEDS: Piperacillin/Tazobactam 3.375 GM in Sodium Chloride 0.9% 100 ML IVPB SCH ×3 (04:18→20:14)
[2022-12-20 04:58] LABS: Anion Gap 14 mmol/L (10-20); BUN (Urea Nitrogen) 11 mg/dL (8.4-25.7); CK (CPK) 1216 U/L (30-200); Calc. Creatinine Clearance 147 mL/min (70-130); Calcium 8.8 mg/dL (7.8-10.44); Carbon Dioxide 29 mmol/L (23-31); Chloride 100 mmol/L (98-107); Estimated GFR 98; Glucose 79 mg/dL (80-115); Sodium 139 mmol/L (136-145)
[2022-12-20] MEDS: levETIRAcetam 500 MG/5 ML VIAL SLOW IVP SCH ×2 (08:16→20:14)
[2022-12-20] MEDS: Polyethylene Glycol 3350 17 GM Packet PO SCH (08:17)
[2022-12-20] MEDS: Senokot S 8.6-50 MG TAB PO SCH ×2 (08:17→20:14)
[2022-12-21] MEDS: Dextrose 5 % And 0.9 % NaCl 1,000 ML IV SCH ×2 (04:23→10:59)
[2022-12-21] MEDS: Piperacillin/Tazobactam 3.375 GM in Sodium Chloride 0.9% 100 ML IVPB SCH ×3 (04:24→20:18)
[2022-12-21 04:54] LABS: Anion Gap 12 mmol/L (10-20); BUN (Urea Nitrogen) 11 mg/dL (8.4-25.7); Calc. Creatinine Clearance 147 mL/min (70-130); Carbon Dioxide 33 mmol/L (23-31); Chloride 100 mmol/L (98-107); Estimated GFR 98; Potassium 3.4 mmol/L (3.5-5.1); Sodium 142 mmol/L (136-145)
[2022-12-21 04:55] LABS: Calcium 8.7 mg/dL (7.8-10.44); Glucose 72 mg/dL (80-115)
[2022-12-21] MEDS ORDERED: Potassium Chloride 20 MEQ TAB PO SCH (08:00)
[2022-12-21] MEDS: Senokot S 8.6-50 MG TAB PO SCH ×2 (08:27→20:18)
[2022-12-21] MEDS: levETIRAcetam 500 MG/5 ML VIAL SLOW IVP SCH (08:28)
[2022-12-21] MEDS: Polyethylene Glycol 3350 17 GM Packet PO SCH (08:28)
[2022-12-21 14:01] LABS: Potassium 4.5 mmol/L (3.5-5.1)
[2022-12-22] MEDS: Piperacillin/Tazobactam 3.375 GM in Sodium Chloride 0.9% 100 ML IVPB SCH ×3 (04:02→20:08)
[2022-12-22 05:11] LABS: Anion Gap 13 mmol/L (10-20); BUN (Urea Nitrogen) 12 mg/dL (8.4-25.7); Calc. Creatinine Clearance 153 mL/min (70-130); Calcium 8.3 mg/dL (7.8-10.44); Carbon Dioxide 32 mmol/L (23-31); Chloride 101 mmol/L (98-107); Estimated GFR 99; Glucose 85 mg/dL (80-115); Potassium 3.4 mmol/L (3.5-5.1); Sodium 143 mmol/L (136-145)
[2022-12-22] MEDS ORDERED: Potassium Chloride 20 MEQ TAB PO SCH (08:00)
[2022-12-22] MEDS: Polyethylene Glycol 3350 17 GM Packet PO SCH (08:39)
[2022-12-22] MEDS: Senokot S 8.6-50 MG TAB PO SCH ×3 (08:39→20:20)
[2022-12-23] MEDS: Piperacillin/Tazobactam 3.375 GM in Sodium Chloride 0.9% 100 ML IVPB SCH ×3 (04:15→20:35)
[2022-12-23 05:01] LABS: Anion Gap 13 mmol/L (10-20); BUN (Urea Nitrogen) 18 mg/dL (8.4-25.7); Calc. Creatinine Clearance 153 mL/min (70-130); Calcium 8.5 mg/dL (7.8-10.44); Carbon Dioxide 34 mmol/L (23-31); Chloride 99 mmol/L (98-107); Estimated GFR 99; Glucose 90 mg/dL (80-115); Potassium 3.3 mmol/L (3.5-5.1); Sodium 143 mmol/L (136-145)
[2022-12-23] MEDS ORDERED: Potassium Chloride 20 MEQ TAB PO SCH ×2 (08:00→11:00)
[2022-12-23] MEDS: Senokot S 8.6-50 MG TAB PO SCH ×2 (10:20→20:37)
[2022-12-23] MEDS: Polyethylene Glycol 3350 17 GM Packet PO SCH (10:20)
[2022-12-23 15:28] VITALS: BMI 33.3
[2022-12-23] MEDS: Carvedilol 6.25 MG TAB PO SCH (18:18)
[2022-12-23] MEDS: Atorvastatin Calcium 40 MG TAB PO SCH (20:36)
[2022-12-23] MEDS: Tamsulosin HCl 0.4 MG CAP PO SCH (20:37)
[2022-12-23] MEDS: Nystatin Powder 15 GM BOT TOP SCH (22:02)
[2022-12-24 04:53] LABS: Anion Gap 11 mmol/L (10-20); BUN (Urea Nitrogen) 18 mg/dL (8.4-25.7); Calc. Creatinine Clearance 151 mL/min (70-130); Calcium 8.9 mg/dL (7.8-10.44); Carbon Dioxide 35 mmol/L (23-31); Chloride 97 mmol/L (98-107); Estimated GFR 98; Glucose 86 mg/dL (80-115); Magnesium 1.8 mg/dL (1.6-2.6); Potassium 3.5 mmol/L (3.5-5.1); Sodium 139 mmol/L (136-145)
[2022-12-24] MEDS ORDERED: Potassium Chloride 20 MEQ TAB PO SCH (08:00)
[2022-12-24] MEDS ORDERED: Magnesium 2 GM/50 ML(in water) 2 GM in Premix 1 BAG IVPB SCH (08:00)
[2022-12-24] MEDS: Polyethylene Glycol 3350 17 GM Packet PO SCH (09:28)
[2022-12-24] MEDS: Aspirin 81 mg Enteric Coated Tablet PO SCH (09:28)
[2022-12-24] MEDS: Senokot S 8.6-50 MG TAB PO SCH (09:29)
[2022-12-24] MEDS: Potassium Chloride 20 MEQ TAB PO SCH (09:29)
[2022-12-24] MEDS: Amoxicillin/Potassium Clav 875 MG TAB PO SCH ×2 (09:29→21:41)
[2022-12-24] MEDS: Lisinopril 10 MG TAB PO SCH (09:29)
[2022-12-24] MEDS: Carvedilol 6.25 MG TAB PO SCH ×2 (09:29→18:56)
[2022-12-24] MEDS: Tamsulosin HCl 0.4 MG CAP PO SCH ×2 (09:29→21:41)
[2022-12-24] MEDS: Nystatin Powder 15 GM BOT TOP SCH ×2 (09:30→21:57)
[2022-12-24] MEDS: Allopurinol 300 MG TAB PO SCH (09:30)
[2022-12-24] MEDS ORDERED: Polyethylene Glycol 3350 17 GM Packet PO PRN (17:36)
[2022-12-24] MEDS ORDERED: Senokot S 8.6-50 MG TAB PO PRN (18:39)
[2022-12-24] MEDS: Atorvastatin Calcium 40 MG TAB PO SCH (21:41)
[2022-12-24 23:58] VITALS: TEMP 98.1
[2022-12-25 04:10] LABS: #Basophils 0.1 thou/uL (0.0-0.2); #Eosinphils 0.4 thou/uL (0.0-0.7); #Monocytes 0.6 thou/uL (0.11-0.59); #Neutrophils 5.1 thou/uL (1.40-6.50); %Basophils 0.7 % (0.0-1.0); %Eosinophils 5.2 % (0.0-10.0); %Lymphocytes 17.5 % (21.0-51.0); %Monocytes 7.8 % (0.0-10.0); %Neutrophils 68.4 % (42.0-75.0); Hematocrit 38.2 % (42.0-52.0); Hemoglobin 11.6 g/dL (14.0-18.0); Mean Corpuscular HGB CONC 30.4 g/dL (32.0-36.0); Mean Corpuscular Volume 92.3 fl (78.0-98.0); Mean Platelet Volume 8.8 fL (7.4-10.4); Platelet Count 234 10x3/uL (130-400); RBC Distribution Width 14.7 % (11.5-14.5); Red Blood Cell (RBC) Count 4.14 mill/uL (4.70-6.10); White Blood Cell (WBC) Count 7.5 10x3/uL (4.8-10.8)
[2022-12-25 04:30] LABS: Anion Gap 12 mmol/L (10-20); BUN (Urea Nitrogen) 21 mg/dL (8.4-25.7); Calc. Creatinine Clearance 155 mL/min (70-130); Calcium 8.5 mg/dL (7.8-10.44); Carbon Dioxide 37 mmol/L (23-31); Chloride 97 mmol/L (98-107); Estimated GFR 99; Glucose 95 mg/dL (80-115); Potassium 3.6 mmol/L (3.5-5.1); Sodium 142 mmol/L (136-145)
[2022-12-25] MEDS: Potassium Chloride 20 MEQ TAB PO SCH (09:04)
[2022-12-25] MEDS: Lisinopril 10 MG TAB PO SCH (09:04)
[2022-12-25] MEDS: Amoxicillin/Potassium Clav 875 MG TAB PO SCH (09:04)
[2022-12-25] MEDS: Carvedilol 6.25 MG TAB PO SCH ×2 (09:04→16:39)
[2022-12-25] MEDS: Aspirin 81 mg Enteric Coated Tablet PO SCH (09:04)
[2022-12-25] MEDS: Allopurinol 300 MG TAB PO SCH (09:04)
[2022-12-25] MEDS: Nystatin Powder 15 GM BOT TOP SCH (09:05)
[2022-12-25] MEDS: Tamsulosin HCl 0.4 MG CAP PO SCH (09:05)
[2022-12-25 15:48] VITALS: BP 179/99
== END 2022-12-25 18:10 | DRG 208 ==
LOC: CCU 22:29 → IMCU/EMU 12-19 00:25 → 2NO 12-19 19:49
PROVIDERS: ADMIT Student in an Organized Health Care Education/Training Program; ATTEND Family Medicine
PROC: 3E03329 Introduction of Other Anti-infective into Peripheral Vein, Percutaneous Approach (ICD-10-PCS; principal; 2022-12-15)
PROC: 4A133R1 Monitoring of Arterial Saturation, Peripheral, Percutaneous Approach (ICD-10-PCS; 2022-12-15)
PROC: 5A1945Z Respiratory Ventilation, 24-96 Consecutive Hours (ICD-10-PCS; 2022-12-15)
PROC: 4A00X4Z Measurement of Central Nervous Electrical Activity, External Approach (ICD-10-PCS; 2022-12-16)
PROC: 5A09357 Assistance with Respiratory Ventilation, Less than 24 Consecutive Hours, Continuous Positive Airway Pressure (ICD-10-PCS; 2022-12-25)
DX: J96.21 Acute and chronic respiratory failure with hypoxia (principal); G93.41 Metabolic encephalopathy; J18.9 Pneumonia, unspecified organism; E87.29 Other acidosis; E87.1 Hypo-osmolality and hyponatremia; N39.0 Urinary tract infection, site not specified; M62.82 Rhabdomyolysis; J96.22 Acute and chronic respiratory failure with hypercapnia; Z51.5 Encounter for palliative care; R56.9 Unspecified convulsions; K52.89 Other specified noninfective gastroenteritis and colitis; Z88.8 Allergy status to other drugs, medicaments and biological substances; Z79.899 Other long term (current) drug therapy; Z79.82 Long term (current) use of aspirin; N40.0 Benign prostatic hyperplasia without lower urinary tract symptoms; E78.5 Hyperlipidemia, unspecified; Z98.890 Other specified postprocedural states; M10.9 Gout, unspecified; T78.3XXA Angioneurotic edema, initial encounter; I25.10 Atherosclerotic heart disease of native coronary artery without angina pectoris; G20.A1 Parkinson's disease without dyskinesia, without mention of fluctuations; G47.33 Obstructive sleep apnea (adult) (pediatric); Z79.4 Long term (current) use of insulin; E87.6 Hypokalemia; Z99.81 Dependence on supplemental oxygen; I10 Essential (primary) hypertension; Z86.73 Personal history of transient ischemic attack (TIA), and cerebral infarction without residual deficits; E11.9 Type 2 diabetes mellitus without complications
CPT/HCPCS: 31500; 36415; 36416; 36600; 43762; 70360; 70450; 70492; 71045; 71275; 74177; 80048; 80053; 80306; 80307; 81001; 82550; 82805; 83605; 83735; 83880; 83930; 83935; 84145; 84300; 84443; 84484; 85025; 85610; 85730; 87040; 87081; 87086; 87449; 87899; 90471; 90694; 93005; 93010; 94002; 94003; 94640; 94660; 94760; 95711; 95819; 95957; 96374; 96375; 99292; C9113; G0008; J0360; J1100; J1200; J1650; J1953; J2060; J2543; J2704; J3010; J3370; J3475; J3480; J3490; J7030; J7042; J7050; J7620; Q9967; S0028

== ENCOUNTER 2023-08-24 12:14 | Outpatient (CLI) | payer MEDICARE | END 2023-08-24 12:15 | disposition home or self-care (01) | LOC: CT 12:14 | PROVIDERS: ATTEND Nurse Practitioner Family | DX: K59.01 Slow transit constipation (principal); K63.89 Other specified diseases of intestine | CPT/HCPCS: 74176 ==

== ENCOUNTER → 2024-01-01 | Day surgery (SDC) | payer MEDICARE ==
[~2024-01-01] MED LIST: Ketamine In 0.9 % NaCl 50 MG/5 ML SYRINGE ONE; Lidocaine 1% PF 5 ML VIAL ONE; Midazolam HCl 2 mg/2 ml Vial ONE; PHENYLEPHRINE-NS 100 MCG/ML 10 ML SYRINGE ONE; PROPOFOL 200 MG/20 ML VIAL ONE
== END ==
LOC: SDC 06:47
PROVIDERS: ATTEND Internal Medicine Gastroenterology
PROC: 0DBE8ZX Excision of Large Intestine, Via Natural or Artificial Opening Endoscopic, Diagnostic (ICD-10-PCS; principal; 2024-01-01)
DX: K63.89 Other specified diseases of intestine (principal); K21.9 Gastro-esophageal reflux disease without esophagitis; M10.9 Gout, unspecified; I12.9 Hypertensive chronic kidney disease with stage 1 through stage 4 chronic kidney disease, or unspecified chronic kidney disease; E11.22 Type 2 diabetes mellitus with diabetic chronic kidney disease; N18.9 Chronic kidney disease, unspecified; N40.0 Benign prostatic hyperplasia without lower urinary tract symptoms; E78.5 Hyperlipidemia, unspecified; Z86.73 Personal history of transient ischemic attack (TIA), and cerebral infarction without residual deficits; Z98.41 Cataract extraction status, right eye; Z98.42 Cataract extraction status, left eye; Z96.642 Presence of left artificial hip joint; Z88.8 Allergy status to other drugs, medicaments and biological substances; Z79.84 Long term (current) use of oral hypoglycemic drugs; Z79.02 Long term (current) use of antithrombotics/antiplatelets; Z79.82 Long term (current) use of aspirin; Z79.899 Other long term (current) drug therapy
CPT/HCPCS: 45380; J2250; J2704; J3490; 88305

== ENCOUNTER 2024-01-22 07:29 | Outpatient (CLI) | payer MEDICARE | END 2024-01-22 07:30 | disposition home or self-care (01) | LOC: CT 07:29 → EDSTATUS 08:00 | PROVIDERS: ATTEND Internal Medicine Gastroenterology | DX: R19.7 Diarrhea, unspecified (principal); R14.0 Abdominal distension (gaseous); Z98.890 Other specified postprocedural states | CPT/HCPCS: 36415; 74177; 82565 ==

== ENCOUNTER 2024-03-04 10:40 | Inpatient (IN) | payer MEDICARE ==
[2024-03-04] MEDS ORDERED: metroNIDAZOLE 500 MG TAB ONE (11:29)
[2024-03-04 11:38] LABS: #Basophils 0.06 10x3/uL (0.0-0.2); %Basophils 0.4 % (0.0-1.0); %Eosinophils 0.8 % (0.0-10.0); %Lymphocytes 3.9 % (21.0-51.0); %Monocytes 3.3 % (0.0-10.0); %Neutrophils 91.2 % (42.0-75.0); Hematocrit 45.9 % (42.0-52.0); Hemoglobin 14.5 g/dL (14.0-18.0); Mean Corpuscular HGB CONC 31.6 g/dL (32.0-36.0); Mean Corpuscular Hemoglobin 27.6 pg (27.0-31.0); Mean Corpuscular Volume 87.3 fL (78.0-98.0); Mean Platelet Volume 8.7 fL (7.4-10.4); Platelet Count 267 10x3/uL (130-400); RBC Distribution Width 14.4 % (11.5-14.5); Red Blood Cell (RBC) Count 5.26 mill/uL (4.70-6.10)
[2024-03-04 11:58] LABS: ALT (SGPT) 17 U/L (8-55); AST (SGOT) 18 U/L (5-34); Albumin 3.2 g/dL (3.4-4.8); Alkaline Phosphatase 112 U/L (40-110); Anion Gap 13 mmol/L (10-20); BUN (Urea Nitrogen) 24 mg/dL (8.4-25.7); Bilirubin, Total 0.5 mg/dL (0.2-1.2); Calc. Creatinine Clearance 0 mL/min (70-130); Calcium 9.1 mg/dL (7.8-10.44); Carbon Dioxide 21 mmol/L (23-31); Chloride 105 mmol/L (98-107); Estimated GFR 97; Globulin 4.1 g/dL (2.4-3.5); Glucose 59 mg/dL (80-115); Potassium 4.1 mmol/L (3.5-5.1); Protein, Total 7.3 g/dL (5.8-8.1); Sodium 135 mmol/L (136-145)
[2024-03-04 14:38] LABS: Lactic Acid 0.79 mmol/L (0.5-2.2)
[2024-03-04] MEDS: Vancomycin HCl 125 MG Capsule PO SCH ×3 (16:32→20:49)
[2024-03-04] MEDS ORDERED: Vancomycin HCl 125 MG Capsule PO SCH (18:00)
[2024-03-04] MEDS ORDERED: metroNIDAZOLE 500 MG TAB PO SCH (21:00)
[2024-03-04] MEDS: Lactated Ringer's 1,000 ML IV SCH (23:18)
[2024-03-04] MEDS: metroNIDAZOLE 500 MG in Premix 1 BAG IVPB SCH (23:18)
[2024-03-05 05:40] LABS: #Basophils 0.05 10x3/uL (0.0-0.2); %Basophils 0.4 % (0.0-1.0); %Eosinophils 2.4 % (0.0-10.0); %Monocytes 6.2 % (0.0-10.0); %Neutrophils 82.4 % (42.0-75.0); Hematocrit 37.7 % (42.0-52.0); Hemoglobin 12.1 g/dL (14.0-18.0); Mean Corpuscular HGB CONC 32.1 g/dL (32.0-36.0); Mean Corpuscular Hemoglobin 27.8 pg (27.0-31.0); Mean Corpuscular Volume 86.5 fL (78.0-98.0); Mean Platelet Volume 8.8 fL (7.4-10.4); Platelet Count 217 10x3/uL (130-400); RBC Distribution Width 14.4 % (11.5-14.5); Red Blood Cell (RBC) Count 4.36 mill/uL (4.70-6.10)
[2024-03-05 05:54] LABS: Anion Gap 10 mmol/L (10-20); BUN (Urea Nitrogen) 20 mg/dL (8.4-25.7); Calc. Creatinine Clearance 138 mL/min (70-130); Calcium 8.3 mg/dL (7.8-10.44); Carbon Dioxide 23 mmol/L (23-31); Chloride 106 mmol/L (98-107); Estimated GFR 100; Glucose 70 mg/dL (80-115); Potassium 3.6 mmol/L (3.5-5.1); Sodium 135 mmol/L (136-145)
[2024-03-05] MEDS ORDERED: Dextrose 50% Abboject 50 ML SYRINGE SLOW IVP PRN (07:29)
[2024-03-05] MEDS ORDERED: Dextrose 5% in Water 1,000 ML IV PRN (07:29)
[2024-03-05] MEDS ORDERED: Insulin Lispro 100 UNIT/ML 10 ML VIAL SC PRN (07:29)
[2024-03-05] MEDS ORDERED: Glucagon 1 MG/ML KIT IM PRN (07:29)
[2024-03-05] MEDS: Atorvastatin Calcium 40 MG TAB PO SCH (09:00)
[2024-03-05] MEDS: Aspirin 81 mg Enteric Coated Tablet PO SCH (09:00)
[2024-03-05] MEDS: Cholecalciferol 1,000 UNITS (25 MCG) TAB PO SCH (09:01)
[2024-03-05] MEDS: Pantoprazole 40 MG DR.TAB PO SCH (09:01)
[2024-03-05] MEDS: Calcium Carbonate 500 MG ChewTAB PO SCH (09:01)
[2024-03-05] MEDS: Loratadine 10 MG TAB PO SCH (09:02)
[2024-03-05] MEDS: Clopidogrel Bisulfate 75 MG TAB PO SCH (09:02)
[2024-03-05] MEDS: Allopurinol 300 MG TAB PO SCH (09:02)
[2024-03-05] MEDS: Enoxaparin 40 MG (0.4 mL) SYRINGE SC SCH (09:15)
[2024-03-06 05:33] LABS: #Basophils 0.07 10x3/uL (0.0-0.2); %Basophils 0.7 % (0.0-1.0); %Eosinophils 5.1 % (0.0-10.0); %Lymphocytes 12.4 % (21.0-51.0); %Monocytes 7.5 % (0.0-10.0); %Neutrophils 73.5 % (42.0-75.0); Hematocrit 41.6 % (42.0-52.0); Mean Corpuscular HGB CONC 31.3 g/dL (32.0-36.0); Mean Corpuscular Hemoglobin 27.3 pg (27.0-31.0); Mean Corpuscular Volume 87.4 fL (78.0-98.0); Platelet Count 182 10x3/uL (130-400); RBC Distribution Width 14.4 % (11.5-14.5); Red Blood Cell (RBC) Count 4.76 mill/uL (4.70-6.10)
[2024-03-06 05:40] LABS: Anion Gap 11 mmol/L (10-20); BUN (Urea Nitrogen) 15 mg/dL (8.4-25.7); Calc. Creatinine Clearance 157 mL/min (70-130); Calcium 8.5 mg/dL (7.8-10.44); Carbon Dioxide 24 mmol/L (23-31); Chloride 106 mmol/L (98-107); Estimated GFR 103; Glucose 100 mg/dL (80-115); Potassium 3.7 mmol/L (3.5-5.1); Sodium 137 mmol/L (136-145)
[2024-03-06] MEDS: Insulin Lispro 100 UNIT/ML 10 ML VIAL SC PRN (11:28)
[2024-03-06] MEDS: hydrALAZINE 20 MG/ML VIAL SLOW IVP PRN (16:50)
[2024-03-07 04:50] LABS: #Basophils 0.06 10x3/uL (0.0-0.2); %Basophils 0.5 % (0.0-1.0); %Eosinophils 5.1 % (0.0-10.0); %Lymphocytes 12.3 % (21.0-51.0); %Neutrophils 76.1 % (42.0-75.0); Hematocrit 38.7 % (42.0-52.0); Hemoglobin 12.7 g/dL (14.0-18.0); Mean Corpuscular HGB CONC 32.8 g/dL (32.0-36.0); Mean Corpuscular Hemoglobin 27.9 pg (27.0-31.0); Mean Corpuscular Volume 85.1 fL (78.0-98.0); Mean Platelet Volume 8.9 fL (7.4-10.4); Platelet Count 249 10x3/uL (130-400); RBC Distribution Width 14.2 % (11.5-14.5); Red Blood Cell (RBC) Count 4.55 mill/uL (4.70-6.10)
[2024-03-07 05:08] LABS: Anion Gap 12 mmol/L (10-20); BUN (Urea Nitrogen) 10 mg/dL (8.4-25.7); Calc. Creatinine Clearance 150 mL/min (70-130); Calcium 8.4 mg/dL (7.8-10.44); Carbon Dioxide 28 mmol/L (23-31); Chloride 101 mmol/L (98-107); Estimated GFR 101; Glucose 92 mg/dL (80-115); Potassium 3.3 mmol/L (3.5-5.1); Sodium 138 mmol/L (136-145)
[2024-03-07 05:36] VITALS: BMI 29.7
[2024-03-07] MEDS: Potassium Chloride 20 MEQ in Premix 1 BAG IVPB SCH (06:45)
[2024-03-07] MEDS: Floranex 1 GM Packet PO SCH (13:10)
[2024-03-07] MEDS: Vancomycin HCl 125 MG Capsule PO SCH (13:14)
[2024-03-07] MEDS: Losartan 25 MG TAB PO SCH (13:14)
[2024-03-08 06:28] LABS: #Basophils 0.07 10x3/uL (0.0-0.2); %Basophils 0.6 % (0.0-1.0); %Eosinophils 2.4 % (0.0-10.0); %Lymphocytes 12.2 % (21.0-51.0); %Monocytes 5.5 % (0.0-10.0); %Neutrophils 77.8 % (42.0-75.0); Hematocrit 44.1 % (42.0-52.0); Hemoglobin 14.3 g/dL (14.0-18.0); Mean Corpuscular HGB CONC 32.4 g/dL (32.0-36.0); Mean Corpuscular Hemoglobin 27.1 pg (27.0-31.0); Mean Corpuscular Volume 83.7 fL (78.0-98.0); Mean Platelet Volume 8.7 fL (7.4-10.4); Platelet Count 313 10x3/uL (130-400); RBC Distribution Width 13.9 % (11.5-14.5); Red Blood Cell (RBC) Count 5.27 mill/uL (4.70-6.10)
[2024-03-08 06:44] LABS: Anion Gap 17 mmol/L (10-20); BUN (Urea Nitrogen) 8 mg/dL (8.4-25.7); Calc. Creatinine Clearance 158 mL/min (70-130); Calcium 8.7 mg/dL (7.8-10.44); Carbon Dioxide 27 mmol/L (23-31); Chloride 100 mmol/L (98-107); Estimated GFR 103; Glucose 139 mg/dL (80-115); Potassium 3.2 mmol/L (3.5-5.1); Sodium 141 mmol/L (136-145)
[2024-03-08] MEDS: Losartan 25 MG TAB PO SCH (09:45)
[2024-03-08] MEDS: Floranex 1 GM Packet PO SCH (09:47)
[2024-03-08] MEDS: Potassium Chloride 20 MEQ TAB PO SCH (14:32)
[2024-03-08 16:34] LABS: Actual Bicarbonate (HCO3v) 31.2 mEq/L (22-28); Base Excess 6.2 mEq/L (-2.0 to +3.0); Calcium, Ionized (venous) 1.08 mmol/L (1.16-1.32); Chloride (VBG) 96 mmol/L (98-106); Hematocrit-VBG 43 % (42.0-52.0); Hemoglobin (Hb) 14.5 g/dL (12.6-17.4); Potassium (VBG) 3.67 mmol/L (3.70-5.30); Sodium 137 mmol/L (133-146); pH (venous) 7.451 (7.32-7.43)
[2024-03-09 05:40] LABS: #Basophils 0.09 10x3/uL (0.0-0.2); %Basophils 0.9 % (0.0-1.0); %Eosinophils 5.6 % (0.0-10.0); %Lymphocytes 20.9 % (21.0-51.0); %Monocytes 7.7 % (0.0-10.0); %Neutrophils 62.4 % (42.0-75.0); Hematocrit 42.2 % (42.0-52.0); Hemoglobin 13.4 g/dL (14.0-18.0); Mean Corpuscular HGB CONC 31.8 g/dL (32.0-36.0); Mean Corpuscular Hemoglobin 27.3 pg (27.0-31.0); Mean Corpuscular Volume 86.1 fL (78.0-98.0); Mean Platelet Volume 8.8 fL (7.4-10.4); Platelet Count 281 10x3/uL (130-400); RBC Distribution Width 14.2 % (11.5-14.5)
[2024-03-09 06:00] LABS: Anion Gap 13 mmol/L (10-20); BUN (Urea Nitrogen) 13 mg/dL (8.4-25.7); Calc. Creatinine Clearance 158 mL/min (70-130); Calcium 8.6 mg/dL (7.8-10.44); Carbon Dioxide 28 mmol/L (23-31); Chloride 102 mmol/L (98-107); Estimated GFR 103; Glucose 88 mg/dL (80-115); Potassium 3.4 mmol/L (3.5-5.1); Sodium 140 mmol/L (136-145)
[2024-03-09] MEDS: Potassium Chloride 20 MEQ TAB PO SCH (09:01)
[2024-03-09] MEDS: Lactated Ringer's 1,000 ML IV SCH (11:38)
[2024-03-09] MEDS: QUEtiapine 25 MG TAB PO SCH (21:05)
[2024-03-10 05:13] LABS: #Basophils 0.09 10x3/uL (0.0-0.2); %Basophils 0.9 % (0.0-1.0); %Eosinophils 6.4 % (0.0-10.0); %Lymphocytes 19.5 % (21.0-51.0); %Neutrophils 65.6 % (42.0-75.0); Hemoglobin 12.2 g/dL (14.0-18.0); Mean Corpuscular HGB CONC 32.1 g/dL (32.0-36.0); Mean Corpuscular Hemoglobin 27.9 pg (27.0-31.0); Mean Corpuscular Volume 86.8 fL (78.0-98.0); Mean Platelet Volume 8.5 fL (7.4-10.4); Platelet Count 289 10x3/uL (130-400); RBC Distribution Width 14.3 % (11.5-14.5); Red Blood Cell (RBC) Count 4.38 mill/uL (4.70-6.10)
[2024-03-10 06:30] LABS: Anion Gap 10 mmol/L (10-20); BUN (Urea Nitrogen) 18 mg/dL (8.4-25.7); Calc. Creatinine Clearance 136 mL/min (70-130); Calcium 8.3 mg/dL (7.8-10.44); Carbon Dioxide 30 mmol/L (23-31); Chloride 102 mmol/L (98-107); Estimated GFR 99; Glucose 110 mg/dL (80-115); Potassium 3.3 mmol/L (3.5-5.1); Sodium 139 mmol/L (136-145)
[2024-03-10] MEDS: Potassium Chloride 20 MEQ TAB PO SCH (09:01)
[2024-03-10 16:02] VITALS: BP 152/102; TEMP 98
== END 2024-03-10 19:15 | DRG 372 ==
LOC: ERS 10:40 → SURG B 15:00
PROVIDERS: ADMIT Student in an Organized Health Care Education/Training Program; ATTEND Student in an Organized Health Care Education/Training Program
DX: A04.71 Enterocolitis due to Clostridium difficile, recurrent (principal); I69.354 Hemiplegia and hemiparesis following cerebral infarction affecting left non-dominant side; N39.0 Urinary tract infection, site not specified; J96.11 Chronic respiratory failure with hypoxia; J96.12 Chronic respiratory failure with hypercapnia; E11.9 Type 2 diabetes mellitus without complications; I10 Essential (primary) hypertension; M10.9 Gout, unspecified; E78.5 Hyperlipidemia, unspecified; I25.10 Atherosclerotic heart disease of native coronary artery without angina pectoris; Z88.8 Allergy status to other drugs, medicaments and biological substances; Z79.899 Other long term (current) drug therapy; Z79.82 Long term (current) use of aspirin; Z79.84 Long term (current) use of oral hypoglycemic drugs; N40.0 Benign prostatic hyperplasia without lower urinary tract symptoms; Z79.02 Long term (current) use of antithrombotics/antiplatelets
CPT/HCPCS: 36415; 36416; 71045; 80048; 80053; 82040; 82805; 83605; 85025; 87040; 93005; 93010; 93970; 94660; 96360; J0360; J1650; J1815; J3480; J7120

== ENCOUNTER 2024-10-11 16:28 | Inpatient (IN) | payer MEDICARE ==
[2024-10-11] MEDS ORDERED: cefTRIAXone (ROCEPHIN) 2 GM VIAL ONE (17:27)
[2024-10-11 17:28] LABS: #Basophils 0.06 10x3/uL (0.0-0.2); #Eosinophils 0.05 10x3/uL (0.0-0.7); #Monocytes 1.09 10x3/uL (0.11-0.59); #Neutrophils 12.69 10x3/uL (1.40-6.50); %Basophils 0.4 % (0.0-1.0); %Eosinophils 0.3 % (0.0-10.0); %Lymphocytes 7.2 % (21.0-51.0); %Monocytes 7.2 % (0.0-10.0); %Neutrophils 84.3 % (42.0-75.0); Hematocrit 38.5 % (42.0-52.0); Hemoglobin 12.4 g/dL (14.0-18.0); Mean Corpuscular Hemoglobin 28.2 pg (27.0-31.0); Mean Corpuscular Volume 87.7 fL (78.0-98.0); Platelet Count 212 10x3/uL (130-400); Red Blood Cell (RBC) Count 4.39 mill/uL (4.70-6.10); White Blood Cell (WBC) Count 15.07 10x3/uL (4.8-10.8)
[2024-10-11 17:33] LABS: Actual Bicarbonate (HCO3v) 21.8 mEq/L (22-28); Analyzer IN Cardio ER; Base Excess -2.1 mEq/L (-2.0 to +3.0); Calcium, Ionized (venous) 1.10 mmol/L (1.16-1.32); Chloride (VBG) 107 mmol/L (98-106); Hematocrit-VBG 40 % (42.0-52.0); Hemoglobin (Hb) 13.5 g/dL (12.6-17.4); Potassium (VBG) 3.18 mmol/L (3.70-5.30); Sodium 139 mmol/L (133-146)
[2024-10-11 17:51] LABS: ALT (SGPT) 16 U/L (Less than 45); AST (SGOT) 18 U/L (11-34); Albumin 3.1 g/dL (3.1-4.5); Alkaline Phosphatase 108 U/L (40-110); Anion Gap 12 mmol/L (10-20); BUN (Urea Nitrogen) 29 mg/dL (8.4-25.7); Bilirubin, Total 0.7 mg/dL (0.3-1.2); Calc. Creatinine Clearance 0 mL/min (70-130); Calcium 8.0 mg/dL (7.8-10.44); Carbon Dioxide 22 mmol/L (23-31); Chloride 109 mmol/L (98-107); Globulin 3.2 g/dL (2.4-3.5); Glucose 82 mg/dL (83-110); Potassium 3.1 mmol/L (3.5-5.1); Sodium 140 mmol/L (136-145)
[2024-10-11 17:55] LABS: Troponin I 0.051 ng/mL (< 0.028)
[2024-10-11] MEDS ORDERED: Albuterol 2.5 MG (0.5 mL) NEB ONE ×2 (18:15→18:17)
[2024-10-11] MEDS ORDERED: Potassium Chloride 20 MEQ (100 mL) BAG ONE ×2 (19:59→20:14)
[2024-10-11 20:12] LABS: Troponin I 0.041 ng/mL (< 0.028)
[2024-10-11 20:37] LABS: Bacteria/HPF 4+ HPF (None Seen); CAUTI Indications for Culture Dysuria,urgency,freq; Glucose, Urine (Dipstick) Normal (Negative); Leukocyte 500 Leu/uL (Negative); Protein, Urine (Dipstick) 300 mg/dL (Neg-Trace); RBC/HPF 21-50 HPF (0-3); Specific Gravity, Urine 1.021 (1.002-1.036); WBC/HPF Greater than 50 HPF (0-3)
[2024-10-11 20:39] LABS: Urine Culture Reflex Yes Yes
[2024-10-11] MEDS ORDERED: Ondansetron PF 4 MG/2 ML Vial IVP PRN (22:45)
[2024-10-11] MEDS ORDERED: Acetaminophen 325 MG TAB PO PRN (22:45)
[2024-10-12 04:09] LABS: #Basophils 0.03 10x3/uL (0.0-0.2); #Eosinophils Less than 0.03 10x3/uL (0.0-0.7); #Monocytes 0.09 10x3/uL (0.11-0.59); #Neutrophils 12.92 10x3/uL (1.40-6.50); %Basophils 0.2 % (0.0-1.0); %Eosinophils 0.0 % (0.0-10.0); %Lymphocytes 3.9 % (21.0-51.0); %Monocytes 0.7 % (0.0-10.0); %Neutrophils 94.4 % (42.0-75.0); Hematocrit 39.9 % (42.0-52.0); Hemoglobin 12.4 g/dL (14.0-18.0); Mean Corpuscular Hemoglobin 28.2 pg (27.0-31.0); Mean Corpuscular Volume 90.9 fL (78.0-98.0); Platelet Count 200 10x3/uL (130-400); Red Blood Cell (RBC) Count 4.39 mill/uL (4.70-6.10); White Blood Cell (WBC) Count 13.68 10x3/uL (4.8-10.8)
[2024-10-12 04:37] LABS: ALT (SGPT) 17 U/L (Less than 45); AST (SGOT) 17 U/L (11-34); Albumin 3.0 g/dL (3.1-4.5); Alkaline Phosphatase 112 U/L (40-110); Anion Gap 13 mmol/L (10-20); BUN (Urea Nitrogen) 27 mg/dL (8.4-25.7); Bilirubin, Total 0.4 mg/dL (0.3-1.2); Calc. Creatinine Clearance 123 mL/min (70-130); Calcium 8.0 mg/dL (7.8-10.44); Carbon Dioxide 19 mmol/L (23-31); Chloride 113 mmol/L (98-107); Globulin 3.4 g/dL (2.4-3.5); Glucose 169 mg/dL (83-110); Potassium 3.3 mmol/L (3.5-5.1); Sodium 142 mmol/L (136-145)
[2024-10-12] MEDS: Enoxaparin 40 MG (0.4 mL) SYRINGE SC SCH (09:22)
[2024-10-12] MEDS ORDERED: Dextrose 50% Abboject 50 ML SYRINGE SLOW IVP PRN (13:02)
[2024-10-12] MEDS ORDERED: Glucagon 1 MG/ML KIT IM PRN (13:02)
[2024-10-12] MEDS: cefTRIAXone\\ROCEPHIN 2 GM in Sodium Chloride 0.9% 100 ML IVPB SCH (15:02)
[2024-10-12] MEDS ORDERED: Electrolyte Replacement Protocol 1 EACH FS PRN (19:21)
[2024-10-13 02:12] VITALS: BMI 30.4
[2024-10-13 05:22] LABS: #Basophils 0.03 10x3/uL (0.0-0.2); #Eosinophils 0.05 10x3/uL (0.0-0.7); #Monocytes 0.73 10x3/uL (0.11-0.59); #Neutrophils 8.04 10x3/uL (1.40-6.50); %Basophils 0.3 % (0.0-1.0); %Eosinophils 0.5 % (0.0-10.0); %Lymphocytes 8.3 % (21.0-51.0); %Monocytes 7.5 % (0.0-10.0); %Neutrophils 82.6 % (42.0-75.0); Hematocrit 39.1 % (42.0-52.0); Hemoglobin 12.3 g/dL (14.0-18.0); Mean Corpuscular Hemoglobin 28.0 pg (27.0-31.0); Mean Corpuscular Volume 89.1 fL (78.0-98.0); Platelet Count 209 10x3/uL (130-400); Red Blood Cell (RBC) Count 4.39 mill/uL (4.70-6.10); White Blood Cell (WBC) Count 9.74 10x3/uL (4.8-10.8)
[2024-10-13 05:41] LABS: Anion Gap 12 mmol/L (10-20); BUN (Urea Nitrogen) 24 mg/dL (8.4-25.7); Calc. Creatinine Clearance 147 mL/min (70-130); Calcium 8.2 mg/dL (7.8-10.44); Carbon Dioxide 18 mmol/L (23-31); Chloride 114 mmol/L (98-107); Glucose 124 mg/dL (83-110); Magnesium 1.7 mg/dL (1.6-2.6); Potassium 3.2 mmol/L (3.5-5.1); Sodium 141 mmol/L (136-145)
[2024-10-13] MEDS: Magnesium 2 GM/50 ML(in water) 2 GM in Premix 1 BAG IVPB SCH (09:32)
[2024-10-13] MEDS: Floranex 1 GM Packet PO SCH (09:33)
[2024-10-13] MEDS: Calcium Carbonate 500 MG ChewTAB PO SCH (09:34)
[2024-10-13] MEDS: Aspirin 81 mg Enteric Coated Tablet PO SCH (09:34)
[2024-10-13] MEDS: Allopurinol 300 MG TAB PO SCH (09:34)
[2024-10-13] MEDS: Losartan 25 MG TAB PO SCH (09:35)
[2024-10-13] MEDS: Pantoprazole 40 MG DR.TAB PO SCH (09:35)
[2024-10-13] MEDS: Cholecalciferol 1,000 UNITS (25 MCG) TAB PO SCH (09:35)
[2024-10-13] MEDS: VANCOMYCIN 2 GRAM/400 ML Premix BAG IVPB SCH (20:43)
[2024-10-13] MEDS ORDERED: Vancomycin 1 GM in Premix 1 BAG IVPB SCH (21:00)
[2024-10-13] MEDS: Acetaminophen 500 MG TAB PO SCH (21:02)
[2024-10-13] MEDS: Acetaminophen 325 MG TAB PO PRN (21:10)
[2024-10-14 05:15] LABS: Vancomycin, Random 17.6 ug/mL (See Comment)
[2024-10-14 05:24] LABS: Anion Gap 12 mmol/L (10-20); BUN (Urea Nitrogen) 14 mg/dL (8.4-25.7); Calc. Creatinine Clearance 152 mL/min (70-130); Calcium 8.0 mg/dL (7.8-10.44); Carbon Dioxide 21 mmol/L (23-31); Chloride 110 mmol/L (98-107); Glucose 127 mg/dL (83-110); Magnesium 1.7 mg/dL (1.6-2.6); Potassium 3.7 mmol/L (3.5-5.1); Sodium 139 mmol/L (136-145)
[2024-10-14] MEDS ORDERED: Vancomycin 1.25 GM / NS 250 ML VIAL-2-BAG IVPB SCH (08:00)
[2024-10-14] MEDS: Magnesium 2 GM/50 ML(in water) 2 GM in Premix 1 BAG IVPB SCH (10:45)
[2024-10-14 12:35] VITALS: BMI 30.4
[2024-10-15 05:39] LABS: #Basophils 0.07 10x3/uL (0.0-0.2); #Eosinophils 0.38 10x3/uL (0.0-0.7); #Monocytes 0.87 10x3/uL (0.11-0.59); #Neutrophils 8.18 10x3/uL (1.40-6.50); %Basophils 0.6 % (0.0-1.0); %Eosinophils 3.4 % (0.0-10.0); %Lymphocytes 13.9 % (21.0-51.0); %Monocytes 7.7 % (0.0-10.0); %Neutrophils 72.7 % (42.0-75.0); Hematocrit 40.2 % (42.0-52.0); Hemoglobin 13.1 g/dL (14.0-18.0); Mean Corpuscular Hemoglobin 28.3 pg (27.0-31.0); Mean Corpuscular Volume 86.8 fL (78.0-98.0); Platelet Count 194 10x3/uL (130-400); Red Blood Cell (RBC) Count 4.63 mill/uL (4.70-6.10); White Blood Cell (WBC) Count 11.25 10x3/uL (4.8-10.8)
[2024-10-15 05:51] LABS: Anion Gap 12 mmol/L (10-20); BUN (Urea Nitrogen) 10 mg/dL (8.4-25.7); Calc. Creatinine Clearance 169 mL/min (70-130); Calcium 7.9 mg/dL (7.8-10.44); Carbon Dioxide 23 mmol/L (23-31); Chloride 108 mmol/L (98-107); Glucose 111 mg/dL (83-110); Potassium 3.7 mmol/L (3.5-5.1); Sodium 139 mmol/L (136-145)
[2024-10-15 08:24] VITALS: TEMP 97.9
[2024-10-15 12:39] VITALS: BP 155/80
== END 2024-10-15 13:51 | DRG 698 ==
LOC: ERS 16:28 → OBSVTOIN 22:33 → PCU 22:33
PROVIDERS: ADMIT Internal Medicine; ATTEND Internal Medicine
PROC: 3E03329 Introduction of Other Anti-infective into Peripheral Vein, Percutaneous Approach (ICD-10-PCS; 2024-10-11)
PROC: 5A09357 Assistance with Respiratory Ventilation, Less than 24 Consecutive Hours, Continuous Positive Airway Pressure (ICD-10-PCS; principal; 2024-10-14)
PROC: 0T9B70Z Drainage of Bladder with Drainage Device, Via Natural or Artificial Opening (ICD-10-PCS; 2024-10-14)
DX: T83.511A Infection and inflammatory reaction due to indwelling urethral catheter, initial encounter (principal); A41.81 Sepsis due to Enterococcus; I69.952 Hemiplegia and hemiparesis following unspecified cerebrovascular disease affecting left dominant side; J96.11 Chronic respiratory failure with hypoxia; M10.9 Gout, unspecified; I10 Essential (primary) hypertension; E78.5 Hyperlipidemia, unspecified; N31.2 Flaccid neuropathic bladder, not elsewhere classified; N40.1 Benign prostatic hyperplasia with lower urinary tract symptoms; E83.42 Hypomagnesemia; G47.33 Obstructive sleep apnea (adult) (pediatric); E66.9 Obesity, unspecified; E87.6 Hypokalemia; I25.10 Atherosclerotic heart disease of native coronary artery without angina pectoris; Z98.890 Other specified postprocedural states; Z88.8 Allergy status to other drugs, medicaments and biological substances; Z79.899 Other long term (current) drug therapy; Z79.82 Long term (current) use of aspirin; Z79.02 Long term (current) use of antithrombotics/antiplatelets; Z79.84 Long term (current) use of oral hypoglycemic drugs; Z68.30 Body mass index [BMI] 30.0-30.9, adult
CPT/HCPCS: 36415; 36416; 71045; 80048; 80053; 80202; 81001; 82805; 83605; 83735; 84484; 85025; 86141; 87040; 87077; 87086; 87186; 87324; 87449; 93005; 94660; 94760; 96361; 96365; 96366; 96375; J0696; J1650; J1815; J2543; J2919; J3375; J3475; J3480; J7030; J7611

== ENCOUNTER 2024-12-26 17:24 | Inpatient (IN) | payer MEDICARE ==
[~2024-12-26 17:24] MED LIST changes: +Iopamidol-370 76% 500 ML MDV (1 ML CHARGE) ONE; -Ketamine In 0.9 % NaCl 50 MG/5 ML SYRINGE ONE; -Lidocaine 1% PF 5 ML VIAL ONE; -Midazolam HCl 2 mg/2 ml Vial ONE; -PHENYLEPHRINE-NS 100 MCG/ML 10 ML SYRINGE ONE; -PROPOFOL 200 MG/20 ML VIAL ONE
[2024-12-26 18:45] LABS: Glucose, Urine (Dipstick) Negative (Negative); Leukocyte Small (Negative); Protein, Urine (Dipstick) 100 mg/dL (Neg-Trace); Specific Gravity, Urine Less/Equal 1.005 (1.005-1.030)
[2024-12-26 19:00] LABS: #Basophils 0.08 10x3/uL (0.0-0.2); #Eosinophils 0.18 10x3/uL (0.0-0.7); #Monocytes 0.60 10x3/uL (0.11-0.59); #Neutrophils 9.43 10x3/uL (1.40-6.50); %Basophils 0.7 % (0.0-1.0); %Eosinophils 1.5 % (0.0-10.0); %Lymphocytes 11.6 % (21.0-51.0); %Monocytes 5.1 % (0.0-10.0); %Neutrophils 80.8 % (42.0-75.0); Hematocrit 44.9 % (42.0-52.0); Hemoglobin 14.0 g/dL (14.0-18.0); Mean Corpuscular Hemoglobin 27.7 pg (27.0-31.0); Mean Corpuscular Volume 88.9 fL (78.0-98.0); Platelet Count 246 10x3/uL (130-400); Red Blood Cell (RBC) Count 5.05 mill/uL (4.70-6.10); White Blood Cell (WBC) Count 11.69 10x3/uL (4.8-10.8)
[2024-12-26 19:16] LABS: Bacteria/HPF 1+ HPF (None Seen); CAUTI Indications for Culture Dysuria,urgency,freq; RBC/HPF 0-3 HPF (0-3); WBC/HPF 21-50 HPF (0-3)
[2024-12-26 19:18] LABS: Urine Culture Reflex Yes Yes
[2024-12-26 19:28] LABS: ALT (SGPT) 15 U/L (Less than 45); AST (SGOT) 16 U/L (11-34); Albumin 3.8 g/dL (3.1-4.5); Alkaline Phosphatase 131 U/L (40-110); Anion Gap 15 mmol/L (10-20); BUN (Urea Nitrogen) 15 mg/dL (8.4-25.7); Bilirubin, Total 0.5 mg/dL (0.3-1.2); Calc. Creatinine Clearance 0 mL/min (70-130); Calcium 8.9 mg/dL (7.8-10.44); Carbon Dioxide 23 mmol/L (23-31); Chloride 106 mmol/L (98-107); Globulin 3.2 g/dL (2.4-3.5); Glucose 41 mg/dL (83-110); Lipase 9 U/L (8-78); Magnesium 1.8 mg/dL (1.6-2.6); Potassium 3.6 mmol/L (3.5-5.1); Sodium 140 mmol/L (136-145)
[2024-12-26] MEDS ORDERED: Dextrose 50% Abboject 50 ML SYRINGE ONE (19:34)
[2024-12-26] MEDS ORDERED: cefTRIAXone (ROCEPHIN) 1 GM VIAL ONE (19:56)
[2024-12-26] MEDS ORDERED: Glucagon 1 MG/ML KIT IM PRN (23:20)
[2024-12-26] MEDS ORDERED: Ondansetron PF 4 MG/2 ML Vial IVP PRN (23:20)
[2024-12-27 04:48] LABS: Anion Gap 14 mmol/L (10-20); BUN (Urea Nitrogen) 16 mg/dL (8.4-25.7); Calc. Creatinine Clearance 0 mL/min (70-130); Calcium 8.6 mg/dL (7.8-10.44); Carbon Dioxide 22 mmol/L (23-31); Chloride 108 mmol/L (98-107); Glucose 50 mg/dL (83-110); Potassium 3.1 mmol/L (3.5-5.1); Sodium 141 mmol/L (136-145)
[2024-12-27 04:52] LABS: #Basophils 0.07 10x3/uL (0.0-0.2); #Eosinophils 0.35 10x3/uL (0.0-0.7); #Monocytes 0.72 10x3/uL (0.11-0.59); #Neutrophils 8.19 10x3/uL (1.40-6.50); %Basophils 0.7 % (0.0-1.0); %Eosinophils 3.3 % (0.0-10.0); %Lymphocytes 10.7 % (21.0-51.0); %Monocytes 6.9 % (0.0-10.0); %Neutrophils 77.8 % (42.0-75.0); Hematocrit 41.8 % (42.0-52.0); Hemoglobin 13.1 g/dL (14.0-18.0); Mean Corpuscular Hemoglobin 27.8 pg (27.0-31.0); Mean Corpuscular Volume 88.6 fL (78.0-98.0); Platelet Count 246 10x3/uL (130-400); Red Blood Cell (RBC) Count 4.72 mill/uL (4.70-6.10); White Blood Cell (WBC) Count 10.51 10x3/uL (4.8-10.8)
[2024-12-27] MEDS: Dextrose 50% Abboject 50 ML SYRINGE SLOW IVP PRN (04:53)
[2024-12-27 05:04] LABS: Actual Bicarbonate (HCO3v) 20.6 mEq/L (22-28); Base Excess -3.5 mEq/L (-2.0 to +3.0); Calcium, Ionized (venous) 1.04 mmol/L (1.16-1.32); Chloride (VBG) 106 mmol/L (98-106); Hematocrit-VBG 43 % (42.0-52.0); Hemoglobin (Hb) 14.6 g/dL (12.6-17.4); Potassium (VBG) 3.21 mmol/L (3.70-5.30); Sodium 139 mmol/L (133-146)
[2024-12-27] MEDS ORDERED: Electrolyte Replacement Protocol 1 EACH FS SCH (06:30)
[2024-12-27 07:39] VITALS: BMI 25.6
[2024-12-27] MEDS ORDERED: PNEUMOC 20-VAL CONJ-DIP CRM/PF 0.5 ML SYRINGE IM ONE (09:00)
[2024-12-27] MEDS ORDERED: FLU (Fluad Triv) 25-26 (65UP)PF 45 MCG/0.5 ML Syringe IM ONE (09:00)
[2024-12-27] MEDS ORDERED: Benzocaine/Menthol 1 LOZ LOZ PO PRN (10:39)
[2024-12-27] MEDS: Magnesium 2 GM/50 ML(in water) 2 GM in Premix 1 BAG IVPB SCH (10:45)
[2024-12-27] MEDS ORDERED: PHOS-NAK 1 PKT PACK PO PRN (11:00)
[2024-12-27] MEDS: Potassium Chloride 20 MEQ in Premix 1 BAG IVPB SCH (12:43)
[2024-12-27] MEDS: Vancomycin 1.5 GM / NS 500 ML VIAL-2-BAG IVPB SCH (12:48)
[2024-12-27] MEDS: Dextrose 50% Abboject 50 ML SYRINGE ONE (13:02)
[2024-12-27] MEDS: Heparin 5,000 UNITS/ML VIAL SC SCH (15:00)
[2024-12-27] MEDS: hydrALAZINE 20 MG/ML VIAL SLOW IVP PRN (19:39)
[2024-12-27] MEDS: VANCOMYCIN 2 GRAM/400 ML Premix BAG IVPB SCH (20:22)
[2024-12-28 04:14] LABS: #Basophils 0.05 10x3/uL (0.0-0.2); #Eosinophils 0.58 10x3/uL (0.0-0.7); #Monocytes 0.54 10x3/uL (0.11-0.59); #Neutrophils 5.58 10x3/uL (1.40-6.50); %Basophils 0.6 % (0.0-1.0); %Eosinophils 7.1 % (0.0-10.0); %Lymphocytes 16.3 % (21.0-51.0); %Monocytes 6.7 % (0.0-10.0); %Neutrophils 68.7 % (42.0-75.0); Hematocrit 40.3 % (42.0-52.0); Hemoglobin 13.0 g/dL (14.0-18.0); Mean Corpuscular Hemoglobin 28.3 pg (27.0-31.0); Mean Corpuscular Volume 87.8 fL (78.0-98.0); Platelet Count 225 10x3/uL (130-400); Red Blood Cell (RBC) Count 4.59 mill/uL (4.70-6.10); White Blood Cell (WBC) Count 8.12 10x3/uL (4.8-10.8)
[2024-12-28 04:26] LABS: Vancomycin, Random 37.7 ug/mL (See Comment)
[2024-12-28 04:32] LABS: Anion Gap 13 mmol/L (10-20); BUN (Urea Nitrogen) 13 mg/dL (8.4-25.7); Calc. Creatinine Clearance 158 mL/min (70-130); Calcium 8.3 mg/dL (7.8-10.44); Carbon Dioxide 24 mmol/L (23-31); Chloride 108 mmol/L (98-107); Glucose 84 mg/dL (83-110); Potassium 2.9 mmol/L (3.5-5.1); Sodium 142 mmol/L (136-145)
[2024-12-28] MEDS: Potassium Chloride 20 MEQ in Premix 1 BAG IVPB PRN (07:33)
[2024-12-28] MEDS ORDERED: Vancomycin HCl 125 MG/5 ML (BATCHED) UDCUP PO SCH (08:30)
[2024-12-28] MEDS ORDERED: PROPOFOL 0 ML ONE (10:52)
[2024-12-28] MEDS: Vancomycin HCl 1.25 GM in Sodium Chloride 0.9% 250 ML 250 ML IVPB SCH (12:42)
[2024-12-28] MEDS: Senokot S 8.6-50 MG TAB PO SCH (21:10)
[2024-12-28 21:28] LABS: Potassium 3.4 mmol/L (3.5-5.1)
[2024-12-29 03:46] LABS: #Basophils 0.05 10x3/uL (0.0-0.2); #Eosinophils 0.62 10x3/uL (0.0-0.7); #Monocytes 0.94 10x3/uL (0.11-0.59); #Neutrophils 9.99 10x3/uL (1.40-6.50); %Basophils 0.4 % (0.0-1.0); %Eosinophils 4.7 % (0.0-10.0); %Lymphocytes 12.3 % (21.0-51.0); %Monocytes 7.1 % (0.0-10.0); %Neutrophils 75.0 % (42.0-75.0); Hematocrit 41.8 % (42.0-52.0); Hemoglobin 13.2 g/dL (14.0-18.0); Mean Corpuscular Hemoglobin 28.0 pg (27.0-31.0); Mean Corpuscular Volume 88.6 fL (78.0-98.0); Platelet Count 216 10x3/uL (130-400); Red Blood Cell (RBC) Count 4.72 mill/uL (4.70-6.10); White Blood Cell (WBC) Count 13.30 10x3/uL (4.8-10.8)
[2024-12-29 04:14] LABS: Anion Gap 13 mmol/L (10-20); BUN (Urea Nitrogen) 10 mg/dL (8.4-25.7); Calc. Creatinine Clearance 128 mL/min (70-130); Calcium 8.5 mg/dL (7.8-10.44); Carbon Dioxide 26 mmol/L (23-31); Chloride 107 mmol/L (98-107); Glucose 126 mg/dL (83-110); Potassium 3.5 mmol/L (3.5-5.1); Sodium 142 mmol/L (136-145)
[2024-12-29 12:32] LABS: Magnesium 1.7 mg/dL (1.6-2.6)
[2024-12-29] MEDS: Losartan 25 MG TAB PO SCH (12:41)
[2024-12-29 14:26] LABS: Potassium 3.7 mmol/L (3.5-5.1)
[2024-12-29] MEDS: Magnesium 2 GM/50 ML(in water) 2 GM in Premix 1 BAG IVPB PRN (14:42)
[2024-12-29] MEDS: Sulfameth/Trimethoprim DS 800-160mg TAB PO SCH (22:20)
[2024-12-30 06:12] LABS: #Basophils 0.05 10x3/uL (0.0-0.2); #Eosinophils 0.55 10x3/uL (0.0-0.7); #Monocytes 0.61 10x3/uL (0.11-0.59); #Neutrophils 6.31 10x3/uL (1.40-6.50); %Basophils 0.5 % (0.0-1.0); %Eosinophils 5.9 % (0.0-10.0); %Lymphocytes 18.6 % (21.0-51.0); %Monocytes 6.6 % (0.0-10.0); %Neutrophils 68.0 % (42.0-75.0); Hematocrit 44.4 % (42.0-52.0); Hemoglobin 13.9 g/dL (14.0-18.0); Mean Corpuscular Hemoglobin 28.1 pg (27.0-31.0); Mean Corpuscular Volume 89.9 fL (78.0-98.0); Platelet Count 210 10x3/uL (130-400); Red Blood Cell (RBC) Count 4.94 mill/uL (4.70-6.10); White Blood Cell (WBC) Count 9.29 10x3/uL (4.8-10.8)
[2024-12-30 06:25] LABS: CRP, High Sensitivity at Bryan 1.74 mg/dL (< or = 0.5); Magnesium 1.8 mg/dL (1.6-2.6)
[2024-12-30 06:27] LABS: Anion Gap 12 mmol/L (10-20); BUN (Urea Nitrogen) 5 mg/dL (8.4-25.7); Calc. Creatinine Clearance 168 mL/min (70-130); Calcium 8.8 mg/dL (7.8-10.44); Carbon Dioxide 27 mmol/L (23-31); Chloride 104 mmol/L (98-107); Glucose 92 mg/dL (83-110); Potassium 3.4 mmol/L (3.5-5.1); Sodium 140 mmol/L (136-145)
[2024-12-30 07:50] VITALS: TEMP 98
[2024-12-30] MEDS: Losartan 25 MG TAB PO SCH (09:16)
[2024-12-30] MEDS: cefTRIAXone\\ROCEPHIN 1 GM in Sodium Chloride 0.9% 100 ML IVPB SCH (09:34)
[2024-12-30 11:16] LABS: Potassium 3.7 mmol/L (3.5-5.1)
[2024-12-30 11:56] VITALS: BP 159/99
== END 2024-12-30 17:13 | DRG 982 ==
LOC: ERS 17:24 → PCU 23:20
PROVIDERS: ADMIT Surgery; ATTEND Surgery
PROC: 3E03329 Introduction of Other Anti-infective into Peripheral Vein, Percutaneous Approach (ICD-10-PCS; 2024-12-26)
PROC: 3E0234Z Introduction of Serum, Toxoid and Vaccine into Muscle, Percutaneous Approach (ICD-10-PCS; 2024-12-27)
PROC: 3E02340 Introduction of Influenza Vaccine into Muscle, Percutaneous Approach (ICD-10-PCS; 2024-12-27)
PROC: 0D9N8ZZ Drainage of Sigmoid Colon, Via Natural or Artificial Opening Endoscopic (ICD-10-PCS; principal; 2024-12-28)
DX: T83.518A Infection and inflammatory reaction due to other urinary catheter, initial encounter (principal); K56.609 Unspecified intestinal obstruction, unspecified as to partial versus complete obstruction; Z88.8 Allergy status to other drugs, medicaments and biological substances; Z86.73 Personal history of transient ischemic attack (TIA), and cerebral infarction without residual deficits; I10 Essential (primary) hypertension; E78.5 Hyperlipidemia, unspecified; I25.10 Atherosclerotic heart disease of native coronary artery without angina pectoris; M10.9 Gout, unspecified; G47.33 Obstructive sleep apnea (adult) (pediatric); E11.649 Type 2 diabetes mellitus with hypoglycemia without coma; N31.2 Flaccid neuropathic bladder, not elsewhere classified; Z98.890 Other specified postprocedural states; N40.0 Benign prostatic hyperplasia without lower urinary tract symptoms; Z79.899 Other long term (current) drug therapy; E87.6 Hypokalemia; D72.829 Elevated white blood cell count, unspecified; E83.42 Hypomagnesemia
CPT/HCPCS: 36415; 36416; 74177; 80048; 80053; 80202; 81001; 82805; 83605; 83690; 83735; 85025; 86141; 87040; 87077; 87086; 87186; 87324; 87449; 93005; 94760; 96365; 96366; 96375; J0360; J0696; J1644; J2543; J2704; J3373; J3375; J3475; J3480; J7030; J7050; J7120; J7999; Q9967